=== PATIENT | male | born 1945 | race Caucasian/White ===

== ENCOUNTER 2018-11-14 18:27 | Emergency (ER) | payer MEDICARE, MEDICAID, SELFPAY ==
[2018-11-14] VITALS (12 sets, daily range): BP systolic 113–152; BP diastolic 70–85; PULSE 98–128; RESP 22–38; TEMP 37.4; O2SAT 93–100
--- NOTE | 2018-11-14 18:37 | DI.CT_ITS ---
SYMPTOM/DIAGNOSIS: ? DISSECTION CT ANGIOGRAPHY OF CHEST, ABDOMEN AND PELVIS: ABDOMEN AND PELVIS: CT angiography was performed with multi slice acquisition and multi planar and 3D reconstruction. The abdominal aorta is intact. No evidence of an aneurysm or dissection. The celiac access is intact and patent. No dissection or significant stenosis is seen. The superior and inferior mesenteric arteries are widely patient. There is mild calcium seen at the origins of the renal arteries but they are otherwise unremarkable. There is significant patient motion artifact present. The liver, spleen, gallbladder and bile ducts are unremarkable as are the adrenal glands. There is fatty infiltration of the pancreas which is otherwise unremarkable. The kidneys show normal and symmetric enhancement. No evidence of a solid renal mass or obstruction. The urinary bladder is intact. There does appear to be a 3 cm soft tissue density in the base of the bladder. This may represent the protrusion of the prostate but a bladder mass cannot be excluded. Reproductive organs are otherwise unremarkable. The bowel shows no evidence of obstruction or inflammation. No definite evidence of an acute appendicitis are present. No significant abdominal or pelvic adenopathy, ascites or pneumoperitoneum seen. Degenerative changes are seen in the spine. IMPRESSION: 1. No evidence of abdominal or pelvic arterial injury or dissection 2. 3 cm soft tissue density in the base of the bladder. Ultrasound or cystoscopy should be considered. CT CHEST: CT angiography was performed with multi slice acquisition and multi planar and 3D reconstruction. CT angiography of the chest was performed according to protocol. There is patient motion artifact. The thoracic aorta is intact. No evidence of dissection or aneurysm. Heart size is within normal limits. No significant pericardial effusion is seen. Coronary artery calcifications are present. No significant thoracic adenopathy is seen. No pneumothorax is identified. There are small bilateral pleural effusions No definite central pulmonary emboli are identified. Despite the patient motion artifact there do appear to be ground glass and patchy opacifications in the lower lobes bilaterally. The bones are intact. IMPRESSION: 1. Limited examination due to patient motion artifact. 2. No evidence of acute thoracic aortic injury/dissection. 3. Bilateral pulmonary infiltrates. This may represent pulmonary edema, infectious or inflammatory process cannot be excluded. 4. Small bilateral pleural effusions.
--- NOTE | 2018-11-14 18:38 | W.ED.GENAD ---
Discharge Plan Disposition Patient Disposition: [facility] Condition: Critical Discharge Details Chief Complaint: Chest Pain Clinical Impression: ACS (acute coronary syndrome) Reason For Visit: MARIA T Primary Care Provider: None,None ED Provider: Jeremiah Shah Home Meds and New Rx's Prescriptions: No Action No Known Home Meds RF: 0 Medical Decision Making 73 yo male who denies chronic medical problems though hasn't seen a medical provider in years, chronic smoker, who comes in with upper back pain and shortness of breath that started about 1-2 hours ago and was so severe ems was called. He is noted to be hypertensive in the 180's, tachypnea, and has diffuse crackles bilaterally with diffuse b lines in both lungs on bedside u/s. Has pain in the upper back, denies chest pain, ekg showing diffuse st dperessions and has avr st elevation. He could be having an acute coronary synodrome but given the upper back pain I am concerned for possible dissection tot he point where I feel he needs stat CT and given concern will hold on heparin and lytics at this time. He was given 624mg asa per the when this started. I am also ordering lasix given his diffuse pulmonary edema pt seen after returning from CT and placed on bipap with significant decrease in work of breathing. I reviewed the CT and do not see a dissection so heparin and plavix ordered. He now states he has had the back pain since yesterday but acutely worsened 2-3 hours ago. Unclear if lytics should be given given over 12 hours of pain. Vrad report not read yet but will discuss [place] [facility] nursing mislabeled initial labs and so they have to be redrawn. His work of breathing has much improved after lasix and bipap and pain is improved after fentanyl. [place] [facility] [place] [facility] agrees with tx plan and wants nitro drip started, hold on lytics at this time. Accepts for transfer. Pt has improved, still on bipap with decreased work of breathing, CT shows no aortic pathology, pulmonary edema, bladder mass that will need outpatient f/u Differential Diagnosis aortic dissection, stemi, pe Imaging Data Radiologic Study: Attestation: I personally reviewed and interpreted this imaging study as follows: Imaging: CT Scan Radiologist's impression: IMPRESSION: 1. Negative for acute aortic pathology. 2. Multifocal interstitial and airspace pulmonary disease. Differential diagnoses includes diffuse interstitial and airspace pulmonary edema versus infectious pneumonic process in the appropriate clinical setting. A combination of both entities is also possible. 3. Small bilateral layering pleural effusions. 4. Other incidental findings as detailed above. IMPRESSION: 1. Negative for acute aortic or vascular pathology. 2. Concern for a 2.9 cm intraluminal urinary bladder wall mass versus luminal indentation by a mildly enlarged prostate. Further evaluation with ultrasound, CT cystogram, or cystoscopy recommended. 3. Other incidental findings as detailed above. Lab Data Lab results reviewed: Yes I reviewed the patient's lab results. ECG Data Attestation: I personally reviewed and interpreted this ECG (s) as follows: Prior ECG tracings: not available for review Interpretation: 1st ekg unreadable due to artifact 2nd ekg shows sinus tachycardia at a rate of 130, pr 174, diffuse st depressions and st elevation in avr HPI General Mode of arrival: EMS. Date/Time Provider Initiated Documentation: 11/14/18 18:27. Limitations to Documentation: no limitations. Information obtained by: patient. History of Present Illness 73 year old M presents to the emergency department with the chief complaint of upper back pain, described as severe, with intensity rated at 10. Quality is described as stabbing and aching, and is localized to the back. Patient reports no radiation. Patient started experiencing this hour(s) (2) and it has been constant. No relieving factors improve symptom(s), No exacerbating factors reported . Patient notes shortness of breath. Patient did receive the following treatments prior to arrival, none Related Data Home Medications Medication Instructions Recorded Confirmed Unknown [No Known Home Meds] 11/14/18 11/14/18 Allergies Allergy/AdvReac Type Severity Reaction Status Date / Time No Known Allergies Allergy Unverified 11/14/18 18:43 Review of Systems Review of Systems All systems reviewed & are unremarkable except as noted in HPI and below Constitutional Denies chills and Denies fever(s) Cardiovascular Denies chest pain Respiratory Denies cough Gastrointestinal Denies abdominal pain, Denies nausea and Denies vomiting Integumentary/Breasts Denies rash [facility] Social History Smoking and Tabacco status: Current every day Exam Const General: in distress Orientation: alert HENMO Head: normal to inspection Ears: external ears normal General nose exam: external nose normal Mouth: moist mucous membranes Eyes General: appearance normal, both eyes and all related structures Neck Neck: normal visual inspection Resp Effort & Inspection: other (tachypnea, crackles throughout) Cardio Rate: regular rate Skin General skin exam: no rashes or lesions noted Neuro General: alert and oriented x3 Extrem General: normal to inspection Psych Mental Status: mental status grossly normal Critical Care Time Critical Care Time: Yes Total Critical Care Time: 60 (minutes) Attestation: Time spent initiating heparin/plavix nitro drip, lab and ekg review, bipap initiation in patient with acute coronary syndrome and pulmonary edema and potential to deteriorate at any time
[2018-11-14] MEDS: Furosemide 40 MG/4 ML VIAL IVP (18:44)
--- NOTE | 2018-11-14 18:46 | ED.GENADUL_ITS ---
Discharge Plan Disposition Patient Disposition: [facility] Condition: Critical Discharge Details Chief Complaint: Chest Pain Clinical Impression: ACS (acute coronary syndrome) Reason For Visit: MARIA T Primary Care Provider: None,None ED Provider: Jeremiah Shah Home Meds and New Rx's Prescriptions: No Action No Known Home Meds RF: 0 Medical Decision Making 73 yo male who denies chronic medical problems though hasn't seen a medical provider in years, chronic smoker, who comes in with upper back pain and shortness of breath that started about 1-2 hours ago and was so severe ems was called. He is noted to be hypertensive in the 180's, tachypnea, and has diffuse crackles bilaterally with diffuse b lines in both lungs on bedside u/s. Has pain in the upper back, denies chest pain, ekg showing diffuse st dperessions and has avr st elevation. He could be having an acute coronary synodrome but given the upper back pain I am concerned for possible dissection tot he point where I feel he needs stat CT and given concern will hold on heparin and lytics at this time. He was given 624mg asa per the when this started. I am also ordering lasix given his diffuse pulmonary edema pt seen after returning from CT and placed on bipap with significant decrease in work of breathing. I reviewed the CT and do not see a dissection so heparin and plavix ordered. He now states he has had the back pain since yesterday but acutely worsened 2-3 hours ago. Unclear if lytics should be given given over 12 hours of pain. Vrad report not read yet but will discuss with cardiology at [facility] lab reports nursing mislabeled initial labs and so they have to be redrawn. His work of breathing has much improved after lasix and bipap and pain is improved after fentanyl. Awaiting cardiology at [facility] spoke with Dr. Singh at [facility], agrees with tx plan and wants nitro drip started, hold on lytics at this time. Accepts for transfer. Pt has improved, still on bipap with decreased work of breathing, CT shows no aortic pathology, pulmonary edema, bladder mass that will need outpatient f/u Differential Diagnosis aortic dissection, stemi, pe Imaging Data Radiologic Study: Attestation: I personally reviewed and interpreted this imaging study as follows: Imaging: CT Scan Radiologist's impression: IMPRESSION: 1. Negative for acute aortic pathology. 2. Multifocal interstitial and airspace pulmonary disease. Differential diagnoses includes diffuse interstitial and airspace pulmonary edema versus infectious pneumonic process in the appropriate clinical setting. A combination of both entities is also possible. 3. Small bilateral layering pleural effusions. 4. Other incidental findings as detailed above. IMPRESSION: 1. Negative for acute aortic or vascular pathology. 2. Concern for a 2.9 cm intraluminal urinary bladder wall mass versus luminal indentation by a mildly enlarged prostate. Further evaluation with ultrasound, CT cystogram, or cystoscopy recommended. 3. Other incidental findings as detailed above. Lab Data Lab results reviewed: Yes I reviewed the patient's lab results. ECG Data Attestation: I personally reviewed and interpreted this ECG (s) as follows: Prior ECG tracings: not available for review Interpretation: 1st ekg unreadable due to artifact 2nd ekg shows sinus tachycardia at a rate of 130, pr 174, diffuse st depressions and st elevation in avr HPI General Mode of arrival: EMS . Date/Time Provider Initiated Documentation: 11/14/18 18:27 . Limitations to Documentation: no limitations . Information obtained by: patient . History of Present Illness 73 year old M presents to the emergency department with the chief complaint of upper back pain, described as severe, with intensity rated at 10. Quality is described as stabbing and aching, and is localized to the back. Patient reports no radiation. Patient started experiencing this hour(s) (2) and it has been constant. No relieving factors improve symptom(s), No exacerbating factors reported . Patient notes shortness of breath. Patient did receive the following treatments prior to arrival, none Related Data Home Medications Medication Instructions Recorded Confirmed Unknown [No Known Home Meds] 11/14/18 11/14/18 Allergies Allergy/AdvReac Type Severity Reaction Status Date / Time No Known Allergies Allergy Unverified 11/14/18 18:43 Review of Systems Review of Systems All systems reviewed & are unremarkable except as noted in HPI and below Constitutional Denies chills and Denies fever(s) Cardiovascular Denies chest pain Respiratory Denies cough Gastrointestinal Denies abdominal pain, Denies nausea and Denies vomiting Integumentary/Breasts Denies rash [facility] Social History Smoking and Tabacco status: Current every day Exam Const General: in distress Orientation: alert HENTN Head: normal to inspection Ears: external ears normal General nose exam: external nose normal Mouth: moist mucous membranes Eyes General: appearance normal, both eyes and all related structures Neck Neck: normal visual inspection Resp Effort & Inspection: other (tachypnea, crackles throughout) Cardio Rate: regular rate Skin General skin exam: no rashes or lesions noted Neuro General: alert and oriented x3 Extrem General: normal to inspection Psych Mental Status: mental status grossly normal Critical Care Time Critical Care Time: Yes Total Critical Care Time: 60 (minutes) Attestation: Time spent initiating heparin/plavix nitro drip, lab and ekg review, bipap initiation in patient with acute coronary syndrome and pulmonary edema and potential to deteriorate at any time
[2018-11-14] MEDS: Omnipaque 350 MG/ML 100 ML BTL IJ (18:50)
[2018-11-14] MEDS: Clopidogrel 300 MG TAB 600 MG PO (19:22)
--- NOTE | 2018-11-14 19:29 | DI.VRAD_ITS ---
EXAM: CT Angiography Chest With Contrast EXAM DATE/TIME: 11/14/2018 6:38 PM CLINICAL HISTORY: 73 years old, male; Pain; Chest pain and other: Back; Additional info: ? Dissection TECHNIQUE: Axial computed tomographic angiography images of the chest with intravenous contrast using CT angiography protocol. MIP reconstructed images were created and reviewed. COMPARISON: No relevant prior studies available. FINDINGS: Limitations: Study is degraded due to respiratory motion. Pulmonary arteries: Normal. No pulmonary emboli. Aorta: The aorta demonstrates mild atherosclerotic calcification. Aorta is otherwise normal in size and course without evidence of acute aortic pathology. Great vessels off aortic arch: There is a conventional branching pattern to the aortic arch vessels. Lungs: Respiratory motion artifact degrades evaluation of the lung parenchyma. Nevertheless, there is interlobular septal thickening appreciated at the lung bases and lung apices. There are diffuse groundglass and patchy opacifications noted in the mid to lower lung segments. Diffuse hazy opacifications throughout the lungs are also appreciated. Pleural space: Small bilateral layering pleural effusions are present. Heart: There is mild atherosclerotic calcification of the coronary arteries. The heart is not enlarged. No pericardial thickening or effusion. Lymph nodes: Unremarkable. No enlarged lymph nodes. Bones/joints: No acute skeletal pathology. Mild multilevel degenerative changes of the spine, as manifested by multilevel anterior osteophytes and multilevel decrease in intervertebral disc space. Soft tissues: Unremarkable. IMPRESSION: 1. Negative for acute aortic pathology. 2. Multifocal interstitial and airspace pulmonary disease. Differential diagnoses includes diffuse interstitial and airspace pulmonary edema versus infectious pneumonic process in the appropriate clinical setting. A combination of both entities is also possible. 3. Small bilateral layering pleural effusions. 4. Other incidental findings as detailed above. EXAM: CT Angiography Abdomen and Pelvis With Contrast EXAM DATE/TIME: 11/14/2018 6:38 PM CLINICAL HISTORY: 73 years old, male; Pain; Chest pain and other: Back; Additional info: ? Dissection TECHNIQUE: Axial computed tomographic angiography images of the abdomen and pelvis with intravenous contrast material, including non-contrast images if performed. MIP and/or 3D reconstructed images were created and reviewed. COMPARISON: No relevant prior studies available. FINDINGS: Limitations: Study is degraded by motion. VASCULATURE: Aorta: Diffuse calcific atherosclerotic disease throughout the abdominal aorta without acute aortic findings. Celiac trunk and mesenteric arteries: Mild calcific atherosclerotic disease to the celiac trunk without acute pathology noted. Questionable aberrant left hepatic artery arising from the aorta. This is however difficult to ascertain due to significant motion artifact. SMA is widely patent and without evidence of acute pathology. SAADIA is diminutive but appears grossly patent. Renal arteries: Mild atherosclerotic disease to the bilateral renal artery ostia. Otherwise, no acute pathology to the renal arteries. Right iliac arteries: Calcific atherosclerotic disease without acute findings. Right femoral/popliteal arteries: Calcific atherosclerotic disease without acute findings of the imaged proximal femoral artery. The popliteal artery was not imaged. Left iliac arteries: Calcific atherosclerotic disease without acute findings. Left femoral/popliteal arteries: Calcific atherosclerotic disease without acute findings of the imaged proximal femoral artery. The popliteal artery was not imaged. ABDOMEN: Liver: No mass. Gallbladder and bile ducts: Unremarkable. No calcified stones. No ductal dilation. Pancreas: There is diffuse, benign fatty infiltration of the pancreas. Spleen: Unremarkable. No splenomegaly. Adrenals: Unremarkable. No mass. Kidneys and ureters: Unremarkable. No solid mass. No hydronephrosis. Stomach and bowel: Unremarkable. No obstruction. No mucosal thickening. Appendix: Appendix is not confidently visualized and is examination. PELVIS: Bladder: 2.9 cm irregular intraluminal soft tissue density in the urinary bladder. Unclear if related to indentation from a mildly enlarged prostate gland versus an intraluminal bladder lesion. Reproductive: Mild prostatomegaly suggested. ABDOMEN and PELVIS: Intraperitoneal space: Unremarkable. No free air. No significant fluid collection. Bones/joints: No acute skeletal pathology. Moderate multilevel degenerative changes of the spine, as manifested by multilevel anterior osteophytes and multilevel decrease in intervertebral disc space. Soft tissues: Unremarkable. Lymph nodes: Unremarkable. No enlarged lymph nodes. IMPRESSION: 1. Negative for acute aortic or vascular pathology. 2. Concern for a 2.9 cm intraluminal urinary bladder wall mass versus luminal indentation by a mildly enlarged prostate. Further evaluation with ultrasound, CT cystogram, or cystoscopy recommended. 3. Other incidental findings as detailed above. Dictated and Authenticated by: Poncho Ferguson MD. Ordering:KELLY Daniels MD
[2018-11-14 19:36] LABS: HCT 24.1 % (40.0-50.0); HGB 8.3 g/dL (13.5-17.5); Mean Corp. HGB Concentration 34.4 g/dL (32.0-36.0); Mean Corpuscular Hemoglobin 41.9 pg (27.0-33.0); Mean Corpuscular Volume 121.7 fL (80-95); Mean Platelet Volume 9.2 fL (8.0-11.0); Platelet Count 219 x1000/uL (130-400); RBC 1.98 m/cumm (4.50-6.00); RBC Distribution Width 16.1 % (11.8-14.1)
[2018-11-14 19:38] LABS: White Blood Cell Count 39.18 k/cumm (4.4-10.8)
[2018-11-14 19:45] LABS: ALT 28 U/L (12-78); AST 71 U/L (15-37); Albumin 3.7 g/dL (3.4-5.0); Alkaline Phosphatase 101 U/L (46-116); Anion Gap 15.4 mmol/L (3-11); BUN 35 mg/dL (7-18); Bilirubin, Total 1.3 mg/dL (0.2-1.0); CO2 21.6 mmol/L (21.0-32.0); CREATININE 1.48 mg/dL (0.70-1.30); Calcium 8.6 mg/dL (8.5-10.1); Chloride 100 mmol/L (98-107); Estimated GFR 46.59 (mL/min/1.73m2); Glucose 285 mg/dL (70-100); Potassium 4.2 mmol/L (3.5-5.1); Sodium 137 mmol/L (136-145); Total Protein 6.7 g/dL (6.4-8.2)
[2018-11-14 19:50] LABS: Troponin I 4.23 ng/mL (0.00-0.06)
[2018-11-14 19:57] LABS: INR 1.1 (0.9-1.1); PTT Activated 18.1 sec (21.0-31.4); Prothrombin Time 10.5 sec (9.3-11.0)
[2018-11-14 21:09] LABS: Lipase 118 U/L (73-393); NT-proBNP 2212 pg/mL
[2018-11-14 21:29] LABS: Absolute Lymphocyte Count 25.47 k/cumm (1.2-3.4); Absolute Neutrophil Count 10.19 k/cumm (1.2-6.7)
[2018-11-14 21:30] LABS: Absolute Monocyte Count 1.96 k/cumm (0.11-0.7)
[2018-11-14 21:31] LABS: Diff Comment Manual Differential; Other Cells 4
[2018-11-14 21:32] LABS: Anisocytosis 2+; Macrocytosis 3+; Microcytosis 1+; Poikilocytes 2+; Polychromasia Present
--- NOTE | 2018-11-16 11:55 | NUR.NOTE ---
Patient transferred [place] [facility], lab report faxed to [phone].Nursing Note:
== END 2018-11-14 20:05 | disposition short-term general hospital (02) ==
LOC: ER 20:04
PROVIDERS: Emergency Provider Emergency Medicine
DX: I24.9 Acute ischemic heart disease, unspecified (principal); F17.210 Nicotine dependence, cigarettes, uncomplicated
CPT/HCPCS: 36415; 71275; 74177; 80053; 80076; 83690; 93005; 96365; 96368; 96375; 99285; 83735; 83880; 84484; 85025; 85610; 85730; 93010; J1940; J3490

== ENCOUNTER 2018-11-25 10:35 | Outpatient (CLI) | payer MEDICARE, MEDICAID, SELFPAY ==
[2018-11-25 11:01] LABS: HCT 32.4 % (40.0-50.0); Mean Corpuscular Hemoglobin 37.9 pg (27.0-33.0); Mean Corpuscular Volume 111.7 fL (80-95); Mean Platelet Volume 8.7 fL (8.0-11.0); Platelet Count 315 x1000/uL (130-400); RBC Distribution Width 20.6 % (11.8-14.1); Reticulocyte 6.5 % (0.5-2.4)
[2018-11-25 11:19] LABS: Absolute Lymphocyte Count 28.51 k/cumm (1.2-3.4); Absolute Monocyte Count 4.26 k/cumm (0.11-0.7); Absolute Neutrophil Count 9.79 k/cumm (1.2-6.7)
[2018-11-25 11:20] LABS: Anisocytosis 2+; Diff Comment Manual Differential; Polychromasia Present
[2018-11-25 11:21] LABS: ALT 50 U/L (12-78); AST 23 U/L (15-37); Albumin 3.1 g/dL (3.4-5.0); Alkaline Phosphatase 89 U/L (46-116); BUN 38 mg/dL (7-18); CREATININE 0.93 mg/dL (0.70-1.30); Calcium 8.6 mg/dL (8.5-10.1); Chloride 102 mmol/L (98-107); Glucose 174 mg/dL (70-100); LDH 317 U/L (85-227); Macrocytosis 3+; Potassium 4.6 mmol/L (3.5-5.1); Sodium 136 mmol/L (136-145); Total Protein 6.4 g/dL (6.4-8.2)
[2018-11-25 11:30] LABS: White Blood Cell Count 42.55 k/cumm (4.4-10.8)
== END 2018-11-25 10:55 ==
PROVIDERS: Visit Provider Internal Medicine Hematology & Oncology
DX: D59.1 Other autoimmune hemolytic anemias (principal)
CPT/HCPCS: 36415; 80053; 83615; 85025; 85045

== ENCOUNTER 2018-12-01 07:57 | Outpatient (CLI) | payer MEDICARE, MEDICAID, SELFPAY ==
[2018-12-01 08:27] LABS: HCT 33.8 % (40.0-50.0); HGB 11.3 g/dL (13.5-17.5); Mean Corp. HGB Concentration 33.4 g/dL (32.0-36.0); Mean Corpuscular Hemoglobin 37.8 pg (27.0-33.0); Mean Platelet Volume 8.8 fL (8.0-11.0); Platelet Count 184 x1000/uL (130-400); RBC 2.99 m/cumm (4.50-6.00); RBC Distribution Width 18.9 % (11.8-14.1); Reticulocyte 4.7 % (0.5-2.4)
[2018-12-01 08:31] LABS: ALT 76 U/L (12-78); AST 25 U/L (15-37); Albumin 3.1 g/dL (3.4-5.0); Alkaline Phosphatase 84 U/L (46-116); Anion Gap 6.6 mmol/L (3-11); BUN 28 mg/dL (7-18); CO2 28.4 mmol/L (21.0-32.0); CREATININE 0.83 mg/dL (0.70-1.30); Calcium 8.5 mg/dL (8.5-10.1); Chloride 102 mmol/L (98-107); Glucose 161 mg/dL (70-100); LDH 220 U/L (85-227); Potassium 4.5 mmol/L (3.5-5.1); Sodium 137 mmol/L (136-145); Total Protein 5.7 g/dL (6.4-8.2)
[2018-12-01 08:52] LABS: White Blood Cell Count 36.19 k/cumm (4.4-10.8)
[2018-12-01 08:53] LABS: Absolute Lymphocyte Count 28.23 k/cumm (1.2-3.4); Absolute Neutrophil Count 7.96 k/cumm (1.2-6.7)
[2018-12-01 08:58] LABS: Anisocytosis 1+; Macrocytosis 2+; Polychromasia Present
[2018-12-01 08:59] LABS: Poikilocytes 1+
[2018-12-01 09:01] LABS: Diff Comment Manual Differential
== END 2018-12-01 08:17 ==
PROVIDERS: Visit Provider Internal Medicine Hematology & Oncology
DX: D59.1 Other autoimmune hemolytic anemias (principal)
CPT/HCPCS: 36415; 80053; 83615; 85025; 85045

== ENCOUNTER 2018-12-09 02:19 | Outpatient (CLI) | payer MEDICARE, MEDICAID, SELFPAY ==
[2018-12-09 09:11] LABS: HCT 33.7 % (40.0-50.0); HGB 11.9 g/dL (13.5-17.5); Mean Corp. HGB Concentration 35.3 g/dL (32.0-36.0); Mean Corpuscular Hemoglobin 39.3 pg (27.0-33.0); Mean Corpuscular Volume 111.2 fL (80-95); Mean Platelet Volume 8.9 fL (8.0-11.0); RBC 3.03 m/cumm (4.50-6.00); RBC Distribution Width 17.2 % (11.8-14.1); Reticulocyte 4.3 % (0.5-2.4)
[2018-12-09 09:25] LABS: ALT 102 U/L (12-78); AST 25 U/L (15-37); Alkaline Phosphatase 82 U/L (46-116); Anion Gap 7.3 mmol/L (3-11); BUN 28 mg/dL (7-18); Bilirubin, Total 0.9 mg/dL (0.2-1.0); CO2 28.7 mmol/L (21.0-32.0); CREATININE 0.71 mg/dL (0.70-1.30); Calcium 8.2 mg/dL (8.5-10.1); Chloride 102 mmol/L (98-107); Glucose 131 mg/dL (70-100); LDH 183 U/L (85-227); Potassium 4.4 mmol/L (3.5-5.1); Sodium 138 mmol/L (136-145); Total Protein 5.2 g/dL (6.4-8.2)
[2018-12-09 09:42] LABS: Platelet Count 77 x1000/uL (130-400); White Blood Cell Count 38.27 k/cumm (4.4-10.8)
[2018-12-09 09:43] LABS: Absolute Lymphocyte Count 31.76 k/cumm (1.2-3.4); Absolute Monocyte Count 0.77 k/cumm (0.11-0.7); Absolute Neutrophil Count 5.74 k/cumm (1.2-6.7)
[2018-12-09 09:44] LABS: Anisocytosis 2+; Diff Comment Manual Differential; Macrocytosis 2+; Polychromasia Present
== END 2018-12-09 02:39 ==
PROVIDERS: PCP Family Medicine; Visit Provider Internal Medicine Hematology & Oncology
DX: D59.1 Other autoimmune hemolytic anemias (principal)
CPT/HCPCS: 36415; 80053; 83615; 85025; 85045

== ENCOUNTER 2018-12-16 08:11 | Outpatient (CLI) | payer MEDICARE, MEDICAID, SELFPAY ==
[2018-12-16 08:33] LABS: Abs Immature Grans 0.07 k/cumm (0.0-0.09); HCT 35.1 % (40.0-50.0); HGB 12.7 g/dL (13.5-17.5); Mean Corp. HGB Concentration 36.2 g/dL (32.0-36.0); Mean Corpuscular Hemoglobin 39.4 pg (27.0-33.0); Mean Platelet Volume 8.7 fL (8.0-11.0); RBC 3.22 m/cumm (4.50-6.00); RBC Distribution Width 16.5 % (11.8-14.1)
[2018-12-16 08:45] LABS: ALT 84 U/L (12-78); AST 24 U/L (15-37); Albumin 3.2 g/dL (3.4-5.0); Alkaline Phosphatase 75 U/L (46-116); Anion Gap 9.9 mmol/L (3-11); BUN 31 mg/dL (7-18); Bilirubin, Total 1.1 mg/dL (0.2-1.0); CO2 23.1 mmol/L (21.0-32.0); CREATININE 0.85 mg/dL (0.70-1.30); Calcium 8.3 mg/dL (8.5-10.1); Chloride 99 mmol/L (98-107); Glucose 150 mg/dL (70-100); LDH 214 U/L (85-227); Potassium 4.3 mmol/L (3.5-5.1); Sodium 132 mmol/L (136-145); Total Protein 5.4 g/dL (6.4-8.2)
[2018-12-16 08:56] LABS: Absolute Neutrophil Count 4.73 k/cumm (1.2-6.7); Platelet Count 85 x1000/uL (130-400); White Blood Cell Count 33.79 k/cumm (4.4-10.8)
[2018-12-16 09:01] LABS: Diff Comment Manual Differential; Macrocytosis 2+; Poikilocytes 1+; Tear Drop Cells 2+
[2018-12-17 12:06] LABS: Absolute Lymphocyte Count 27.71 k/cumm (1.2-3.4)
[2018-12-17 12:08] LABS: Absolute Monocyte Count 1.35 k/cumm (0.11-0.7)
[2018-12-17 13:25] LABS: Hepatitis B Surface Ag Negative (NEGAT)
[2018-12-17 14:17] LABS: Hepatitis C Ab w Rflx HCV PCR Negative (NEGAT)
[2018-12-17 14:37] LABS: HBs Antibody, Quant 52.3 mIU/mL; Hepatitis B Surface Ab Positive
== END 2018-12-16 08:31 ==
PROVIDERS: PCP Family Medicine; Visit Provider Internal Medicine Hematology & Oncology
DX: D59.1 Other autoimmune hemolytic anemias (principal); C91.90 Lymphoid leukemia, unspecified not having achieved remission
CPT/HCPCS: 36415; 80053; 86706; 86803; 87340; 83615; 85025; 85045; 86704

== ENCOUNTER → 2018-12-18 13:56 | Outpatient (BNVA) | payer MEDICARE, MEDICAID, SELFPAY | PROVIDERS: PCP Family Medicine; Visit Provider Urology | DX: N32.9 Bladder disorder, unspecified (principal); R31.29 Other microscopic hematuria; I21.9 Acute myocardial infarction, unspecified | CPT/HCPCS: 99214; 99242 ==

== ENCOUNTER 2018-12-23 01:45 | Outpatient (CLI) | payer MEDICARE, MEDICAID, SELFPAY ==
[2018-12-23 08:03] LABS: Abs Immature Grans 0.06 k/cumm (0.0-0.09); HCT 36.4 % (40.0-50.0); HGB 12.8 g/dL (13.5-17.5); Mean Corp. HGB Concentration 35.2 g/dL (32.0-36.0); Mean Corpuscular Hemoglobin 38.9 pg (27.0-33.0); Mean Corpuscular Volume 110.6 fL (80-95); Mean Platelet Volume 8.5 fL (8.0-11.0); Platelet Count 101 x1000/uL (130-400); RBC 3.29 m/cumm (4.50-6.00); RBC Distribution Width 16.4 % (11.8-14.1); White Blood Cell Count 19.89 k/cumm (4.4-10.8)
[2018-12-23 08:16] LABS: ALT 71 U/L (12-78); AST 22 U/L (15-37); Alkaline Phosphatase 70 U/L (46-116); Anion Gap 9.9 mmol/L (3-11); BUN 24 mg/dL (7-18); Bilirubin, Total 0.9 mg/dL (0.2-1.0); CO2 27.1 mmol/L (21.0-32.0); CREATININE 0.83 mg/dL (0.70-1.30); Calcium 8.5 mg/dL (8.5-10.1); Chloride 98 mmol/L (98-107); Glucose 107 mg/dL (70-100); LDH 202 U/L (85-227); Sodium 135 mmol/L (136-145); Total Protein 5.5 g/dL (6.4-8.2)
[2018-12-23 08:17] LABS: Absolute Lymphocyte Count 14.32 k/cumm (1.2-3.4); Absolute Neutrophil Count 5.17 k/cumm (1.2-6.7)
[2018-12-23 08:18] LABS: Anisocytosis 2+; Macrocytosis 2+; Poikilocytes 1+; Polychromasia Present
[2018-12-23 08:19] LABS: Diff Comment Manual Differential
== END 2018-12-23 02:05 ==
PROVIDERS: PCP Family Medicine; Visit Provider Internal Medicine Hematology & Oncology
DX: D59.1 Other autoimmune hemolytic anemias (principal)
CPT/HCPCS: 36415; 80053; 83615; 85025; 85045

== ENCOUNTER → 2018-12-24 10:38 | Outpatient (BNVA) | payer MEDICARE, MEDICAID, SELFPAY | PROVIDERS: PCP Family Medicine; Visit Provider Internal Medicine Cardiovascular Disease | DX: I25.10 Atherosclerotic heart disease of native coronary artery without angina pectoris (principal); I21.4 Non-ST elevation (NSTEMI) myocardial infarction; Z95.5 Presence of coronary angioplasty implant and graft; E78.2 Mixed hyperlipidemia; E11.9 Type 2 diabetes mellitus without complications; Z79.84 Long term (current) use of oral hypoglycemic drugs | CPT/HCPCS: 99205; 99215 ==

== ENCOUNTER 2018-12-30 02:11 | Outpatient (CLI) | payer MEDICARE, MEDICAID, SELFPAY ==
[2018-12-30 08:00] LABS: Abs Immature Grans 0.03 k/cumm (0.0-0.09); Absolute Basophil Count 0.01 k/cumm (0.0-0.2); Absolute Eosinophil Count 0.02 k/cumm (0.0-0.7); Absolute Lymphocyte Count 6.78 k/cumm (1.2-3.4); Absolute Neutrophil Count 4.04 k/cumm (1.2-6.7); Basophils % 0.1; Eosinophils % 0.2; HCT 37.7 % (40.0-50.0); Immature Grans % 0.3; Mean Corp. HGB Concentration 34.5 g/dL (32.0-36.0); Mean Corpuscular Volume 110.2 fL (80-95); Mean Platelet Volume 8.1 fL (8.0-11.0); Monocytes % 2.2; Neutrophils % 36.3; RBC 3.42 m/cumm (4.50-6.00); RBC Distribution Width 16.6 % (11.8-14.1); Reticulocyte 3.1 % (0.5-2.4); White Blood Cell Count 11.13 k/cumm (4.4-10.8)
[2018-12-30 08:08] LABS: ALT 71 U/L (12-78); AST 22 U/L (15-37); Albumin 3.1 g/dL (3.4-5.0); Alkaline Phosphatase 80 U/L (46-116); Anion Gap 10.3 mmol/L (3-11); BUN 37 mg/dL (7-18); Bilirubin, Total 1.2 mg/dL (0.2-1.0); CO2 25.7 mmol/L (21.0-32.0); CREATININE 0.99 mg/dL (0.70-1.30); Calcium 8.4 mg/dL (8.5-10.1); Chloride 100 mmol/L (98-107); Glucose 128 mg/dL (70-100); LDH 216 U/L (85-227); Potassium 4.2 mmol/L (3.5-5.1); Sodium 136 mmol/L (136-145); Total Protein 5.8 g/dL (6.4-8.2)
[2018-12-30 08:12] LABS: Absolute Monocyte Count 0.24 k/cumm (0.11-0.7)
[2018-12-30 08:19] LABS: Anisocytosis 1+; Lymphocytes % 60.9; Platelet Count 108 x1000/uL (130-400)
[2018-12-30 08:20] LABS: Macrocytosis 2+; Poikilocytes 2+; Polychromasia Present
== END 2018-12-30 02:31 ==
PROVIDERS: PCP Family Medicine; Visit Provider Internal Medicine Hematology & Oncology
DX: D59.1 Other autoimmune hemolytic anemias (principal)
CPT/HCPCS: 36415; 80053; 83615; 85025; 85045

== ENCOUNTER 2019-01-06 08:47 | Outpatient (CLI) | payer MEDICARE, MEDICAID, SELFPAY ==
[2019-01-06 09:08] LABS: Abs Immature Grans 0.06 k/cumm (0.0-0.09); Absolute Basophil Count 0.01 k/cumm (0.0-0.2); Absolute Eosinophil Count 0.02 k/cumm (0.0-0.7); Absolute Lymphocyte Count 3.43 k/cumm (1.2-3.4); Absolute Neutrophil Count 4.09 k/cumm (1.2-6.7); Basophils % 0.1; Eosinophils % 0.3; HCT 35.8 % (40.0-50.0); HGB 12.7 g/dL (13.5-17.5); Immature Grans % 0.8; Mean Corp. HGB Concentration 35.5 g/dL (32.0-36.0); Mean Corpuscular Hemoglobin 38.5 pg (27.0-33.0); Mean Corpuscular Volume 108.5 fL (80-95); Mean Platelet Volume 8.4 fL (8.0-11.0); Monocytes % 1.3; Platelet Count 123 x1000/uL (130-400); RBC Distribution Width 16.2 % (11.8-14.1); Reticulocyte 3.7 % (0.5-2.4); White Blood Cell Count 7.71 k/cumm (4.4-10.8)
[2019-01-06 09:16] LABS: ALT 90 U/L (12-78); AST 26 U/L (15-37); Albumin 3.1 g/dL (3.4-5.0); Alkaline Phosphatase 86 U/L (46-116); Anion Gap 10.1 mmol/L (3-11); BUN 27 mg/dL (7-18); Bilirubin, Total 0.9 mg/dL (0.2-1.0); CO2 27.9 mmol/L (21.0-32.0); CREATININE 0.91 mg/dL (0.70-1.30); Calcium 8.5 mg/dL (8.5-10.1); Chloride 100 mmol/L (98-107); Glucose 145 mg/dL (70-100); LDH 220 U/L (85-227); Potassium 3.8 mmol/L (3.5-5.1); Sodium 138 mmol/L (136-145); Total Protein 5.8 g/dL (6.4-8.2)
[2019-01-06 09:29] LABS: Anisocytosis 1+; Lymphocytes % 44.5; Macrocytosis 2+; Polychromasia Present
== END 2019-01-06 09:07 ==
PROVIDERS: PCP Family Medicine; Visit Provider Internal Medicine Hematology & Oncology
DX: D59.1 Other autoimmune hemolytic anemias (principal)
CPT/HCPCS: 36415; 80053; 83615; 85025; 85045

== ENCOUNTER 2019-01-12 01:42 | Outpatient (CLI) | payer MEDICARE, MEDICAID, SELFPAY ==
[2019-01-12 07:43] LABS: Abs Immature Grans 0.06 k/cumm (0.0-0.09); Absolute Basophil Count 0.01 k/cumm (0.0-0.2); Absolute Eosinophil Count 0.02 k/cumm (0.0-0.7); Absolute Lymphocyte Count 3.17 k/cumm (1.2-3.4); Absolute Monocyte Count 0.26 k/cumm (0.11-0.7); BUN 28 mg/dL (7-18); Basophils % 0.1; Calcium 8.7 mg/dL (8.5-10.1); Eosinophils % 0.3; Glucose 152 mg/dL (70-100); HCT 35.1 % (40.0-50.0); HGB 12.4 g/dL (13.5-17.5); Immature Grans % 0.9; Lymphocytes % 45.8; Mean Corp. HGB Concentration 35.3 g/dL (32.0-36.0); Mean Corpuscular Hemoglobin 38.2 pg (27.0-33.0); Mean Platelet Volume 8.4 fL (8.0-11.0); Monocytes % 3.8; Neutrophils % 49.1; Platelet Count 120 x1000/uL (130-400); RBC 3.25 m/cumm (4.50-6.00); RBC Distribution Width 15.9 % (11.8-14.1); Reticulocyte 4.2 % (0.5-2.4); White Blood Cell Count 6.92 k/cumm (4.4-10.8)
[2019-01-12 07:44] LABS: ALT 79 U/L (12-78); AST 23 U/L (15-37); Albumin 3.2 g/dL (3.4-5.0); Alkaline Phosphatase 76 U/L (46-116); Anion Gap 10.4 mmol/L (3-11); CO2 25.6 mmol/L (21.0-32.0); Chloride 100 mmol/L (98-107); LDH 217 U/L (85-227); Potassium 3.6 mmol/L (3.5-5.1); Sodium 136 mmol/L (136-145); Total Protein 5.8 g/dL (6.4-8.2)
== END 2019-01-12 02:02 ==
PROVIDERS: PCP Family Medicine; Visit Provider Internal Medicine Hematology & Oncology
DX: D59.1 Other autoimmune hemolytic anemias (principal)
CPT/HCPCS: 36415; 80053; 83615; 85025; 85045

== ENCOUNTER 2019-01-19 01:24 | Outpatient (CLI) | payer MEDICARE, MEDICAID, SELFPAY ==
[2019-01-19 08:22] LABS: Abs Immature Grans 0.05 k/cumm (0.0-0.09); Absolute Basophil Count 0.01 k/cumm (0.0-0.2); Absolute Eosinophil Count 0.02 k/cumm (0.0-0.7); Absolute Lymphocyte Count 3.22 k/cumm (1.2-3.4); Absolute Monocyte Count 0.22 k/cumm (0.11-0.7); Basophils % 0.2; Eosinophils % 0.3; HCT 35.4 % (40.0-50.0); HGB 12.3 g/dL (13.5-17.5); Immature Grans % 0.9; Lymphocytes % 55.3; Mean Corp. HGB Concentration 34.7 g/dL (32.0-36.0); Mean Corpuscular Hemoglobin 37.4 pg (27.0-33.0); Mean Corpuscular Volume 107.6 fL (80-95); Mean Platelet Volume 8.2 fL (8.0-11.0); Monocytes % 3.8; Neutrophils % 39.5; Platelet Count 131 x1000/uL (130-400); RBC 3.29 m/cumm (4.50-6.00); Reticulocyte 4.8 % (0.5-2.4); White Blood Cell Count 5.82 k/cumm (4.4-10.8)
[2019-01-19 08:58] LABS: ALT 127 U/L (12-78); AST 30 U/L (15-37); Albumin 3.3 g/dL (3.4-5.0); Alkaline Phosphatase 77 U/L (46-116); Anion Gap 12.4 mmol/L (3-11); BUN 27 mg/dL (7-18); Bilirubin, Total 1.2 mg/dL (0.2-1.0); CO2 25.6 mmol/L (21.0-32.0); CREATININE 0.89 mg/dL (0.70-1.30); Calcium 8.6 mg/dL (8.5-10.1); Chloride 99 mmol/L (98-107); Glucose 153 mg/dL (70-100); LDH 218 U/L (85-227); Potassium 3.6 mmol/L (3.5-5.1); Sodium 137 mmol/L (136-145); Total Protein 5.6 g/dL (6.4-8.2)
[2019-01-19 09:30] LABS: Anisocytosis 2+; Diff Comment RBC Morph Reviewed; Macrocytosis 2+; Microcytosis 1+; Polychromasia Present
[2019-01-19 09:31] LABS: Poikilocytes 2+
== END 2019-01-19 01:44 ==
PROVIDERS: PCP Family Medicine; Visit Provider Internal Medicine Hematology & Oncology
DX: D59.1 Other autoimmune hemolytic anemias (principal)
CPT/HCPCS: 36415; 80053; 83615; 85025; 85045

== ENCOUNTER 2019-01-26 02:21 | Outpatient (CLI) | payer MEDICARE, MEDICAID, SELFPAY ==
[2019-01-26 07:33] LABS: Abs Immature Grans 0.09 k/cumm (0.0-0.09); HCT 33.6 % (40.0-50.0); HGB 11.9 g/dL (13.5-17.5); Mean Corp. HGB Concentration 35.4 g/dL (32.0-36.0); Mean Corpuscular Hemoglobin 37.9 pg (27.0-33.0); Mean Platelet Volume 7.9 fL (8.0-11.0); Platelet Count 126 x1000/uL (130-400); RBC 3.14 m/cumm (4.50-6.00); RBC Distribution Width 15.7 % (11.8-14.1); Reticulocyte 4.9 % (0.5-2.4); White Blood Cell Count 3.63 k/cumm (4.4-10.8)
[2019-01-26 07:45] LABS: ALT 90 U/L (12-78); AST 25 U/L (15-37); Albumin 3.2 g/dL (3.4-5.0); Alkaline Phosphatase 71 U/L (46-116); Anion Gap 9.3 mmol/L (3-11); BUN 22 mg/dL (7-18); Bilirubin, Total 1.2 mg/dL (0.2-1.0); CO2 25.7 mmol/L (21.0-32.0); CREATININE 0.88 mg/dL (0.70-1.30); Calcium 8.4 mg/dL (8.5-10.1); Chloride 100 mmol/L (98-107); Glucose 137 mg/dL (70-100); LDH 212 U/L (85-227); Potassium 3.7 mmol/L (3.5-5.1); Sodium 135 mmol/L (136-145); Total Protein 5.6 g/dL (6.4-8.2)
[2019-01-26 07:53] LABS: Absolute Neutrophil Count 1.89 k/cumm (1.2-6.7)
[2019-01-26 08:12] LABS: Absolute Monocyte Count 0.11 k/cumm (0.11-0.7)
[2019-01-26 08:13] LABS: Anisocytosis 1+; Diff Comment Manual Differential; Macrocytosis 1+; Poikilocytes 1+; Polychromasia Present
== END 2019-01-26 02:41 ==
PROVIDERS: PCP Family Medicine; Visit Provider Internal Medicine Hematology & Oncology
DX: D59.1 Other autoimmune hemolytic anemias (principal)
CPT/HCPCS: 80053; 83615; 85025; 85045

== ENCOUNTER 2019-02-03 10:36 | Outpatient (CLI) | payer MEDICARE, MEDICAID, SELFPAY ==
[2019-02-03 11:04] LABS: Abs Immature Grans 0.11 k/cumm (0.0-0.09); HCT 35.5 % (40.0-50.0); HGB 12.5 g/dL (13.5-17.5); Mean Corp. HGB Concentration 35.2 g/dL (32.0-36.0); Mean Corpuscular Hemoglobin 37.5 pg (27.0-33.0); Mean Corpuscular Volume 106.6 fL (80-95); Mean Platelet Volume 7.8 fL (8.0-11.0); Platelet Count 128 x1000/uL (130-400); RBC 3.33 m/cumm (4.50-6.00); RBC Distribution Width 15.8 % (11.8-14.1); Reticulocyte 4.4 % (0.5-2.4); White Blood Cell Count 4.72 k/cumm (4.4-10.8)
[2019-02-03 11:16] LABS: ALT 88 U/L (12-78); AST 28 U/L (15-37); Albumin 3.4 g/dL (3.4-5.0); Alkaline Phosphatase 59 U/L (46-116); Anion Gap 10.7 mmol/L (3-11); BUN 29 mg/dL (7-18); Bilirubin, Total 1.6 mg/dL (0.2-1.0); CO2 25.3 mmol/L (21.0-32.0); CREATININE 1.02 mg/dL (0.70-1.30); Calcium 8.8 mg/dL (8.5-10.1); Chloride 99 mmol/L (98-107); Glucose 200 mg/dL (70-100); LDH 258 U/L (85-227); Potassium 4.5 mmol/L (3.5-5.1); Sodium 135 mmol/L (136-145); Total Protein 6.1 g/dL (6.4-8.2)
[2019-02-03 11:21] LABS: Absolute Neutrophil Count 2.83 k/cumm (1.2-6.7)
[2019-02-03 11:22] LABS: Absolute Lymphocyte Count 1.75 k/cumm (1.2-3.4); Absolute Monocyte Count 0.14 k/cumm (0.11-0.7); Anisocytosis 1+; Atypical Lymphocytes % 7; Diff Comment Manual Differential; Macrocytosis 3+; Polychromasia Present
[2019-02-03 11:23] LABS: Poikilocytes 2+
== END 2019-02-03 10:56 ==
PROVIDERS: PCP Family Medicine; Visit Provider Internal Medicine Hematology & Oncology
DX: D59.1 Other autoimmune hemolytic anemias (principal)
CPT/HCPCS: 36415; 80053; 83615; 85025; 85045

== ENCOUNTER 2019-02-09 02:41 | Outpatient (CLI) | payer MEDICARE, MEDICAID, SELFPAY ==
[2019-02-09 08:08] LABS: Abs Immature Grans 0.24 k/cumm (0.0-0.09); HCT 34.4 % (40.0-50.0); HGB 11.6 g/dL (13.5-17.5); Mean Corp. HGB Concentration 33.7 g/dL (32.0-36.0); Mean Corpuscular Hemoglobin 36.1 pg (27.0-33.0); Mean Corpuscular Volume 107.2 fL (80-95); Mean Platelet Volume 7.9 fL (8.0-11.0); Platelet Count 153 x1000/uL (130-400); RBC 3.21 m/cumm (4.50-6.00); RBC Distribution Width 15.6 % (11.8-14.1); Reticulocyte 5.5 % (0.5-2.4); White Blood Cell Count 4.48 k/cumm (4.4-10.8)
[2019-02-09 08:25] LABS: Absolute Lymphocyte Count 1.03 k/cumm (1.2-3.4); Absolute Monocyte Count 0.04 k/cumm (0.11-0.7); Absolute Neutrophil Count 3.36 k/cumm (1.2-6.7)
[2019-02-09 08:27] LABS: Anisocytosis 1+; Diff Comment Manual Differential; Macrocytosis 2+; Polychromasia Present; Tear Drop Cells 2+
[2019-02-09 09:01] LABS: ALT 98 U/L (12-78); AST 31 U/L (15-37); Albumin 3.4 g/dL (3.4-5.0); Alkaline Phosphatase 70 U/L (46-116); BUN 20 mg/dL (7-18); Bilirubin, Total 1.1 mg/dL (0.2-1.0); CREATININE 0.98 mg/dL (0.70-1.30); Calcium 8.8 mg/dL (8.5-10.1); Chloride 99 mmol/L (98-107); Glucose 207 mg/dL (70-100); LDH 245 U/L (85-227); Potassium 4.3 mmol/L (3.5-5.1); Sodium 136 mmol/L (136-145); Total Protein 5.6 g/dL (6.4-8.2)
== END 2019-02-09 03:01 ==
PROVIDERS: PCP Family Medicine; Visit Provider Internal Medicine Hematology & Oncology
DX: D59.1 Other autoimmune hemolytic anemias (principal)
CPT/HCPCS: 36415; 80053; 83615; 85025; 85045

== ENCOUNTER 2019-02-16 01:44 | Outpatient (CLI) | payer MEDICARE, MEDICAID, SELFPAY ==
[2019-02-16 08:06] LABS: Abs Immature Grans 0.03 k/cumm (0.0-0.09); Absolute Eosinophil Count 0.01 k/cumm (0.0-0.7); Absolute Lymphocyte Count 1.12 k/cumm (1.2-3.4); Absolute Monocyte Count 0.34 k/cumm (0.11-0.7); Absolute Neutrophil Count 1.29 k/cumm (1.2-6.7); Eosinophils % 0.4; HCT 34.1 % (40.0-50.0); HGB 11.8 g/dL (13.5-17.5); Immature Grans % 1.1; Lymphocytes % 40.1; Mean Corp. HGB Concentration 34.6 g/dL (32.0-36.0); Mean Corpuscular Volume 106.9 fL (80-95); Mean Platelet Volume 7.8 fL (8.0-11.0); Monocytes % 12.2; Neutrophils % 46.2; Platelet Count 162 x1000/uL (130-400); RBC 3.19 m/cumm (4.50-6.00); RBC Distribution Width 14.9 % (11.8-14.1); Reticulocyte 4.4 % (0.5-2.4); White Blood Cell Count 2.79 k/cumm (4.4-10.8)
[2019-02-16 08:19] LABS: ALT 94 U/L (12-78); AST 26 U/L (15-37); Albumin 3.4 g/dL (3.4-5.0); Alkaline Phosphatase 61 U/L (46-116); Anion Gap 9.1 mmol/L (3-11); BUN 19 mg/dL (7-18); Bilirubin, Total 1.5 mg/dL (0.2-1.0); CO2 26.9 mmol/L (21.0-32.0); CREATININE 0.91 mg/dL (0.70-1.30); Chloride 102 mmol/L (98-107); Glucose 125 mg/dL (70-100); LDH 223 U/L (85-227); Potassium 4.2 mmol/L (3.5-5.1); Sodium 138 mmol/L (136-145); Total Protein 5.9 g/dL (6.4-8.2)
== END 2019-02-16 02:04 ==
PROVIDERS: PCP Family Medicine; Visit Provider Internal Medicine Hematology & Oncology
DX: D59.1 Other autoimmune hemolytic anemias (principal)
CPT/HCPCS: 36415; 80053; 83615; 85025; 85045

== ENCOUNTER 2019-02-23 01:07 | Outpatient (CLI) | payer MEDICARE, MEDICAID, SELFPAY ==
[2019-02-23 08:12] LABS: Abs Immature Grans 0.15 k/cumm (0.0-0.09); Absolute Basophil Count 0.02 k/cumm (0.0-0.2); Absolute Lymphocyte Count 1.47 k/cumm (1.2-3.4); Absolute Monocyte Count 0.65 k/cumm (0.11-0.7); Absolute Neutrophil Count 5.66 k/cumm (1.2-6.7); Basophils % 0.3; HCT 36.9 % (40.0-50.0); HGB 12.8 g/dL (13.5-17.5); Immature Grans % 1.9; Lymphocytes % 18.5; Mean Corp. HGB Concentration 34.7 g/dL (32.0-36.0); Mean Corpuscular Volume 106.6 fL (80-95); Monocytes % 8.2; Neutrophils % 71.1; Platelet Count 171 x1000/uL (130-400); RBC 3.46 m/cumm (4.50-6.00); RBC Distribution Width 14.6 % (11.8-14.1); Reticulocyte 5.5 % (0.5-2.4); White Blood Cell Count 7.95 k/cumm (4.4-10.8)
[2019-02-23 08:18] LABS: ALT 79 U/L (12-78); AST 21 U/L (15-37); Albumin 3.5 g/dL (3.4-5.0); Alkaline Phosphatase 62 U/L (46-116); Anion Gap 9.5 mmol/L (3-11); BUN 22 mg/dL (7-18); CO2 26.5 mmol/L (21.0-32.0); CREATININE 0.96 mg/dL (0.70-1.30); Calcium 8.9 mg/dL (8.5-10.1); Chloride 99 mmol/L (98-107); Glucose 165 mg/dL (70-100); LDH 199 U/L (85-227); Potassium 3.9 mmol/L (3.5-5.1); Sodium 135 mmol/L (136-145); Total Protein 6.1 g/dL (6.4-8.2)
== END 2019-02-23 01:27 ==
PROVIDERS: PCP Family Medicine; Visit Provider Internal Medicine Hematology & Oncology
DX: D59.1 Other autoimmune hemolytic anemias (principal)
CPT/HCPCS: 36415; 80053; 83615; 85025; 85045

== ENCOUNTER 2019-03-02 01:52 | Outpatient (CLI) | payer MEDICARE, MEDICAID, SELFPAY ==
[2019-03-02 07:31] LABS: Abs Immature Grans 0.08 k/cumm (0.0-0.09); Absolute Basophil Count 0.01 k/cumm (0.0-0.2); Absolute Eosinophil Count 0.01 k/cumm (0.0-0.7); Absolute Lymphocyte Count 0.81 k/cumm (1.2-3.4); Absolute Monocyte Count 0.35 k/cumm (0.11-0.7); Absolute Neutrophil Count 6.09 k/cumm (1.2-6.7); Basophils % 0.1; Eosinophils % 0.1; HCT 37.7 % (40.0-50.0); Immature Grans % 1.1; Mean Corp. HGB Concentration 34.5 g/dL (32.0-36.0); Mean Corpuscular Hemoglobin 36.8 pg (27.0-33.0); Mean Corpuscular Volume 106.8 fL (80-95); Mean Platelet Volume 8.1 fL (8.0-11.0); Monocytes % 4.8; Neutrophils % 82.9; Platelet Count 139 x1000/uL (130-400); RBC 3.53 m/cumm (4.50-6.00); RBC Distribution Width 13.9 % (11.8-14.1); Reticulocyte 3.6 % (0.5-2.4); White Blood Cell Count 7.35 k/cumm (4.4-10.8)
[2019-03-02 07:46] LABS: ALT 103 U/L (12-78); AST 30 U/L (15-37); Albumin 3.6 g/dL (3.4-5.0); Alkaline Phosphatase 64 U/L (46-116); Anion Gap 9.5 mmol/L (3-11); BUN 17 mg/dL (7-18); Bilirubin, Total 0.9 mg/dL (0.2-1.0); CO2 26.5 mmol/L (21.0-32.0); CREATININE 0.96 mg/dL (0.70-1.30); Chloride 101 mmol/L (98-107); Glucose 165 mg/dL (70-100); LDH 204 U/L (85-227); Potassium 3.9 mmol/L (3.5-5.1); Sodium 137 mmol/L (136-145); Total Protein 6.1 g/dL (6.4-8.2)
== END 2019-03-02 02:12 ==
PROVIDERS: PCP Family Medicine; Visit Provider Internal Medicine Hematology & Oncology
DX: D59.1 Other autoimmune hemolytic anemias (principal)
CPT/HCPCS: 36415; 80053; 83615; 85025; 85045

== ENCOUNTER 2019-03-09 07:05 | Outpatient (CLI) | payer MEDICARE, MEDICAID, SELFPAY ==
[2019-03-09 07:40] LABS: Abs Immature Grans 0.08 k/cumm (0.0-0.09); Absolute Basophil Count 0.02 k/cumm (0.0-0.2); Absolute Eosinophil Count 0.02 k/cumm (0.0-0.7); Absolute Lymphocyte Count 1.48 k/cumm (1.2-3.4); Absolute Monocyte Count 0.48 k/cumm (0.11-0.7); Absolute Neutrophil Count 3.75 k/cumm (1.2-6.7); Basophils % 0.3; Eosinophils % 0.3; HCT 38.9 % (40.0-50.0); HGB 13.4 g/dL (13.5-17.5); Immature Grans % 1.4; Lymphocytes % 25.4; Mean Corp. HGB Concentration 34.4 g/dL (32.0-36.0); Mean Corpuscular Hemoglobin 36.5 pg (27.0-33.0); Mean Platelet Volume 8.1 fL (8.0-11.0); Monocytes % 8.2; Neutrophils % 64.4; Platelet Count 123 x1000/uL (130-400); RBC 3.67 m/cumm (4.50-6.00); RBC Distribution Width 13.4 % (11.8-14.1); Reticulocyte 3.1 % (0.5-2.4); White Blood Cell Count 5.83 k/cumm (4.4-10.8)
[2019-03-09 08:01] LABS: ALT 85 U/L (12-78); AST 27 U/L (15-37); Albumin 3.6 g/dL (3.4-5.0); Alkaline Phosphatase 55 U/L (46-116); Anion Gap 7.5 mmol/L (3-11); BUN 19 mg/dL (7-18); Bilirubin, Total 0.9 mg/dL (0.2-1.0); CO2 27.5 mmol/L (21.0-32.0); CREATININE 0.99 mg/dL (0.70-1.30); Calcium 9.1 mg/dL (8.5-10.1); Chloride 103 mmol/L (98-107); Glucose 122 mg/dL (70-100); LDH 203 U/L (85-227); Potassium 3.7 mmol/L (3.5-5.1); Sodium 138 mmol/L (136-145); Total Protein 6.1 g/dL (6.4-8.2)
== END 2019-03-09 07:25 ==
PROVIDERS: PCP Family Medicine; Visit Provider Internal Medicine Hematology & Oncology
DX: D59.1 Other autoimmune hemolytic anemias (principal)
CPT/HCPCS: 36415; 80053; 83615; 85025; 85045

== ENCOUNTER 2019-03-17 07:06 | Outpatient (CLI) | payer MEDICARE, MEDICAID, SELFPAY ==
[2019-03-17 07:30] LABS: Abs Immature Grans 0.04 k/cumm (0.0-0.09); Absolute Basophil Count 0.03 k/cumm (0.0-0.2); Absolute Eosinophil Count 0.05 k/cumm (0.0-0.7); Absolute Lymphocyte Count 1.38 k/cumm (1.2-3.4); Absolute Monocyte Count 0.46 k/cumm (0.11-0.7); Absolute Neutrophil Count 1.91 k/cumm (1.2-6.7); Basophils % 0.8; Eosinophils % 1.3; Lymphocytes % 35.7; Mean Corp. HGB Concentration 34.2 g/dL (32.0-36.0); Mean Corpuscular Hemoglobin 35.7 pg (27.0-33.0); Mean Corpuscular Volume 104.4 fL (80-95); Mean Platelet Volume 8.1 fL (8.0-11.0); Monocytes % 11.9; Neutrophils % 49.3; Platelet Count 117 x1000/uL (130-400); RBC 3.64 m/cumm (4.50-6.00); RBC Distribution Width 12.9 % (11.8-14.1); White Blood Cell Count 3.87 k/cumm (4.4-10.8)
[2019-03-17 07:48] LABS: ALT 61 U/L (12-78); AST 24 U/L (15-37); Albumin 3.6 g/dL (3.4-5.0); Alkaline Phosphatase 52 U/L (46-116); Anion Gap 8.6 mmol/L (3-11); BUN 16 mg/dL (7-18); CO2 27.4 mmol/L (21.0-32.0); CREATININE 0.86 mg/dL (0.70-1.30); Calcium 8.9 mg/dL (8.5-10.1); Chloride 105 mmol/L (98-107); Glucose 117 mg/dL (70-100); LDH 212 U/L (85-227); Sodium 141 mmol/L (136-145)
== END 2019-03-17 07:26 ==
PROVIDERS: PCP Family Medicine; Visit Provider Internal Medicine Hematology & Oncology
DX: D59.1 Other autoimmune hemolytic anemias (principal)
CPT/HCPCS: 36415; 80053; 83615; 85025; 85045

== ENCOUNTER 2019-03-23 07:03 | Outpatient (CLI) | payer MEDICARE, MEDICAID, SELFPAY ==
[2019-03-23 07:34] LABS: Abs Immature Grans 0.05 k/cumm (0.0-0.09); Absolute Basophil Count 0.02 k/cumm (0.0-0.2); Absolute Eosinophil Count 0.03 k/cumm (0.0-0.7); Absolute Lymphocyte Count 1.16 k/cumm (1.2-3.4); Absolute Monocyte Count 0.53 k/cumm (0.11-0.7); Absolute Neutrophil Count 2.13 k/cumm (1.2-6.7); Basophils % 0.5; Eosinophils % 0.8; HCT 40.3 % (40.0-50.0); HGB 13.5 g/dL (13.5-17.5); Immature Grans % 1.3; Lymphocytes % 29.6; Mean Corp. HGB Concentration 33.5 g/dL (32.0-36.0); Mean Corpuscular Hemoglobin 34.4 pg (27.0-33.0); Mean Corpuscular Volume 102.8 fL (80-95); Monocytes % 13.5; Neutrophils % 54.3; Platelet Count 143 x1000/uL (130-400); RBC 3.92 m/cumm (4.50-6.00); Reticulocyte 2.4 % (0.5-2.4); White Blood Cell Count 3.92 k/cumm (4.4-10.8)
[2019-03-23 07:48] LABS: ALT 53 U/L (12-78); AST 25 U/L (15-37); Albumin 3.7 g/dL (3.4-5.0); Alkaline Phosphatase 63 U/L (46-116); BUN 14 mg/dL (7-18); Bilirubin, Total 0.8 mg/dL (0.2-1.0); CREATININE 0.88 mg/dL (0.70-1.30); Calcium 9.2 mg/dL (8.5-10.1); Chloride 104 mmol/L (98-107); Glucose 102 mg/dL (70-100); LDH 210 U/L (85-227); Potassium 3.9 mmol/L (3.5-5.1); Sodium 142 mmol/L (136-145); Total Protein 6.3 g/dL (6.4-8.2)
== END 2019-03-23 07:23 ==
PROVIDERS: PCP Family Medicine; Visit Provider Internal Medicine Hematology & Oncology
DX: D59.1 Other autoimmune hemolytic anemias (principal)
CPT/HCPCS: 36415; 80053; 83615; 85025; 85045

== ENCOUNTER 2019-04-06 07:07 | Outpatient (CLI) | payer MEDICARE, MEDICAID, SELFPAY ==
[2019-04-06 07:39] LABS: Abs Immature Grans 0.01 k/cumm (0.0-0.09); Absolute Basophil Count 0.02 k/cumm (0.0-0.2); Absolute Eosinophil Count 0.02 k/cumm (0.0-0.7); Absolute Lymphocyte Count 0.96 k/cumm (1.2-3.4); Absolute Monocyte Count 0.35 k/cumm (0.11-0.7); Absolute Neutrophil Count 1.11 k/cumm (1.2-6.7); Basophils % 0.8; Eosinophils % 0.8; HCT 38.1 % (40.0-50.0); HGB 13.2 g/dL (13.5-17.5); Immature Grans % 0.4; Lymphocytes % 38.9; Mean Corp. HGB Concentration 34.6 g/dL (32.0-36.0); Mean Corpuscular Hemoglobin 34.1 pg (27.0-33.0); Mean Corpuscular Volume 98.4 fL (80-95); Mean Platelet Volume 8.3 fL (8.0-11.0); Monocytes % 14.2; Neutrophils % 44.9; Platelet Count 147 x1000/uL (130-400); RBC 3.87 m/cumm (4.50-6.00); RBC Distribution Width 12.5 % (11.8-14.1); Reticulocyte 1.5 % (0.5-2.4); White Blood Cell Count 2.47 k/cumm (4.4-10.8)
[2019-04-06 07:57] LABS: Diff Comment Diff Reviewed; Polychromasia Present
[2019-04-06 08:32] LABS: ALT 35 U/L (12-78); AST 20 U/L (15-37); Albumin 3.7 g/dL (3.4-5.0); Alkaline Phosphatase 75 U/L (46-116); BUN 17 mg/dL (7-18); CREATININE 0.92 mg/dL (0.70-1.30); Calcium 9.1 mg/dL (8.5-10.1); Chloride 103 mmol/L (98-107); Glucose 122 mg/dL (70-100); LDH 248 U/L (85-227); Potassium 3.8 mmol/L (3.5-5.1); Sodium 139 mmol/L (136-145); Total Protein 6.4 g/dL (6.4-8.2)
== END 2019-04-06 07:27 ==
PROVIDERS: PCP Family Medicine; Visit Provider Internal Medicine Hematology & Oncology
DX: D59.1 Other autoimmune hemolytic anemias (principal)
CPT/HCPCS: 36415; 80053; 83615; 85025; 85045

== ENCOUNTER 2019-05-04 07:47 | Outpatient (CLI) | payer MEDICARE, MEDICAID, SELFPAY ==
[2019-05-04 08:05] LABS: Absolute Basophil Count 0.02 k/cumm (0.0-0.2); Absolute Eosinophil Count 0.05 k/cumm (0.0-0.7); Absolute Lymphocyte Count 1.34 k/cumm (1.2-3.4); Absolute Monocyte Count 0.71 k/cumm (0.11-0.7); Absolute Neutrophil Count 0.98 k/cumm (1.2-6.7); Basophils % 0.6; Eosinophils % 1.6; HCT 41.8 % (40.0-50.0); HGB 14.4 g/dL (13.5-17.5); Lymphocytes % 43.2; Mean Corp. HGB Concentration 34.4 g/dL (32.0-36.0); Mean Corpuscular Hemoglobin 32.5 pg (27.0-33.0); Mean Corpuscular Volume 94.4 fL (80-95); Mean Platelet Volume 8.5 fL (8.0-11.0); Monocytes % 22.9; Neutrophils % 31.7; Platelet Count 209 x1000/uL (130-400); RBC 4.43 m/cumm (4.50-6.00); RBC Distribution Width 12.4 % (11.8-14.1); Reticulocyte 1.5 % (0.5-2.4)
[2019-05-04 08:32] LABS: ALT 35 U/L (12-78); AST 20 U/L (15-37); Albumin 3.8 g/dL (3.4-5.0); Alkaline Phosphatase 88 U/L (46-116); Anion Gap 11.8 mmol/L (3-11); BUN 13 mg/dL (7-18); CO2 25.2 mmol/L (21.0-32.0); CREATININE 0.89 mg/dL (0.70-1.30); Chloride 103 mmol/L (98-107); Glucose 153 mg/dL (70-100); Potassium 3.9 mmol/L (3.5-5.1); Sodium 140 mmol/L (136-145); Total Protein 6.4 g/dL (6.4-8.2)
[2019-05-04 08:36] LABS: Diff Comment Diff Reviewed; RBC Morphology Normal
[2019-05-04 08:43] LABS: LDH 171 U/L (85-227)
== END 2019-05-04 08:07 ==
PROVIDERS: PCP Family Medicine; Visit Provider Internal Medicine Hematology & Oncology
DX: D59.1 Other autoimmune hemolytic anemias (principal); I25.10 Atherosclerotic heart disease of native coronary artery without angina pectoris; E78.2 Mixed hyperlipidemia
CPT/HCPCS: 36415; 80053; 83615; 85025; 85045

== ENCOUNTER → 2019-05-06 09:37 | Outpatient (BNVA) | payer MEDICARE, MEDICAID, SELFPAY | PROVIDERS: PCP Family Medicine; Visit Provider Internal Medicine Cardiovascular Disease | DX: I25.5 Ischemic cardiomyopathy (principal); E78.2 Mixed hyperlipidemia; I25.2 Old myocardial infarction; Z95.5 Presence of coronary angioplasty implant and graft; I25.10 Atherosclerotic heart disease of native coronary artery without angina pectoris; E11.9 Type 2 diabetes mellitus without complications; I10 Essential (primary) hypertension | CPT/HCPCS: 99214 ==

== ENCOUNTER 2019-05-18 07:03 | Outpatient (CLI) | payer MEDICARE, MEDICAID, SELFPAY ==
[2019-05-18 08:03] LABS: Anion Gap 10.8 mmol/L (3-11); BUN 19 mg/dL (7-18); CO2 25.2 mmol/L (21.0-32.0); CREATININE 0.87 mg/dL (0.70-1.30); Calcium 9.3 mg/dL (8.5-10.1); Chloride 105 mmol/L (98-107); Glucose 112 mg/dL (70-100); Sodium 141 mmol/L (136-145)
== END 2019-05-18 07:23 ==
PROVIDERS: PCP Family Medicine; Visit Provider Family Medicine
DX: R73.9 Hyperglycemia, unspecified (principal)
CPT/HCPCS: 36415; 80048

== ENCOUNTER 2019-08-04 08:38 | Outpatient (CLI) | payer MEDICARE, MEDICAID, SELFPAY ==
[2019-08-04 09:09] LABS: Abs Immature Grans 0.01 k/cumm (0.0-0.09); Absolute Basophil Count 0.02 k/cumm (0.0-0.2); Absolute Eosinophil Count 0.12 k/cumm (0.0-0.7); Absolute Lymphocyte Count 1.02 k/cumm (1.2-3.4); Absolute Monocyte Count 0.82 k/cumm (0.11-0.7); Absolute Neutrophil Count 4.61 k/cumm (1.2-6.7); Basophils % 0.3; Eosinophils % 1.8; HCT 40.5 % (40.0-50.0); HGB 14.1 g/dL (13.5-17.5); Immature Grans % 0.2; Lymphocytes % 15.5; Mean Corp. HGB Concentration 34.8 g/dL (32.0-36.0); Mean Corpuscular Hemoglobin 31.3 pg (27.0-33.0); Mean Platelet Volume 8.6 fL (8.0-11.0); Monocytes % 12.4; Neutrophils % 69.8; Platelet Count 213 x1000/uL (130-400); RBC Distribution Width 14.5 % (11.8-14.1); Reticulocyte 1.2 % (0.5-2.4)
[2019-08-04 09:29] LABS: ALT 36 U/L (16-63); AST 20 U/L (15-37); Albumin 3.8 g/dL (3.4-5.0); Alkaline Phosphatase 108 U/L (46-116); Anion Gap 7.3 mmol/L (3-11); BUN 16 mg/dL (7-18); Bilirubin, Total 0.9 mg/dL (0.2-1.0); CO2 28.7 mmol/L (21.0-32.0); CREATININE 0.93 mg/dL (0.70-1.30); Chloride 107 mmol/L (98-107); Glucose 120 mg/dL (70-100); LDH 148 U/L (85-227); Potassium 4.4 mmol/L (3.5-5.1); Sodium 143 mmol/L (136-145); Total Protein 6.6 g/dL (6.4-8.2)
== END 2019-08-04 08:58 ==
PROVIDERS: PCP Family Medicine; Visit Provider Internal Medicine Hematology & Oncology
DX: D59.1 Other autoimmune hemolytic anemias (principal)
CPT/HCPCS: 80053; 83615; 85025; 85045

== ENCOUNTER 2019-10-28 10:15 | Outpatient (CLI) | payer MEDICARE, MEDICAID, SELFPAY ==
[2019-10-28 10:47] LABS: Abs Immature Grans 0.02 k/cumm (0.0-0.09); Absolute Basophil Count 0.02 k/cumm (0.0-0.2); Absolute Eosinophil Count 0.13 k/cumm (0.0-0.7); Absolute Lymphocyte Count 1.66 k/cumm (1.2-3.4); Absolute Monocyte Count 0.77 k/cumm (0.11-0.7); Absolute Neutrophil Count 3.75 k/cumm (1.2-6.7); Basophils % 0.3; HCT 43.8 % (40.0-50.0); HGB 15.3 g/dL (13.5-17.5); Immature Grans % 0.3 %; Lymphocytes % 26.1; Mean Corp. HGB Concentration 34.9 g/dL (32.0-36.0); Mean Corpuscular Hemoglobin 31.8 pg (27.0-33.0); Mean Corpuscular Volume 91.1 fL (80-95); Mean Platelet Volume 8.6 fL (8.0-11.0); Monocytes % 12.1; Neutrophils % 59.2; Platelet Count 190 x1000/uL (130-400); RBC 4.81 m/cumm (4.50-6.00); RBC Distribution Width 13.7 % (11.8-14.1); Reticulocyte 1.3 % (0.5-2.4); White Blood Cell Count 6.35 k/cumm (4.4-10.8)
[2019-10-28 11:03] LABS: ALT 48 U/L (16-63); AST 22 U/L (15-37); Alkaline Phosphatase 105 U/L (46-116); Anion Gap 10.6 mmol/L (3-11); BUN 24 mg/dL (7-18); Bilirubin, Total 0.6 mg/dL (0.2-1.0); CO2 27.4 mmol/L (21.0-32.0); CREATININE 0.83 mg/dL (0.70-1.30); Calcium 9.3 mg/dL (8.5-10.1); Chloride 106 mmol/L (98-107); Glucose 109 mg/dL (74-106); LDH 143 U/L (85-227); Potassium 4.4 mmol/L (3.5-5.1); Sodium 144 mmol/L (136-145); Total Protein 6.5 g/dL (6.4-8.2)
== END 2019-10-28 10:35 ==
PROVIDERS: PCP Family Medicine; Visit Provider Internal Medicine Hematology & Oncology
DX: D59.1 Other autoimmune hemolytic anemias (principal)
CPT/HCPCS: 36415; 80053; 83615; 85025; 85045

== ENCOUNTER → 2020-02-14 09:01 | Outpatient (BNVA) | payer MEDICARE, MEDICAID, SELFPAY | PROVIDERS: PCP Family Medicine; Referring Provider Family Medicine; Visit Provider Internal Medicine Cardiovascular Disease | DX: I25.5 Ischemic cardiomyopathy (principal); I25.10 Atherosclerotic heart disease of native coronary artery without angina pectoris; Z95.5 Presence of coronary angioplasty implant and graft; E11.9 Type 2 diabetes mellitus without complications | CPT/HCPCS: 99204; 99215 ==

== ENCOUNTER 2020-03-08 02:38 | Outpatient (CLI) | payer MEDICARE, MEDICAID, SELFPAY ==
[2020-03-08 11:59] LABS: Abs Immature Grans 0.02 k/cumm (0.0-0.09); Absolute Basophil Count 0.01 k/cumm (0.0-0.2); Absolute Eosinophil Count 0.06 k/cumm (0.0-0.7); Absolute Lymphocyte Count 1.95 k/cumm (1.2-3.4); Absolute Monocyte Count 0.67 k/cumm (0.11-0.7); Absolute Neutrophil Count 5.42 k/cumm (1.2-6.7); Basophils % 0.1; Eosinophils % 0.7; HCT 44.2 % (40.0-50.0); HGB 15.7 g/dL (13.5-17.5); Immature Grans % 0.2 %; Mean Corp. HGB Concentration 35.5 g/dL (32.0-36.0); Mean Corpuscular Hemoglobin 33.4 pg (27.0-33.0); Mean Platelet Volume 8.7 fL (8.0-11.0); Monocytes % 8.2; Neutrophils % 66.8; Platelet Count 200 x1000/uL (130-400); RBC Distribution Width 13.3 % (11.8-14.1); White Blood Cell Count 8.13 k/cumm (4.4-10.8)
[2020-03-08 12:13] LABS: ALT 46 U/L (16-63); AST 21 U/L (15-37); Albumin 4.1 g/dL (3.4-5.0); Alkaline Phosphatase 103 U/L (46-116); Anion Gap 9.9 mmol/L (3-11); BUN 22 mg/dL (7-18); CO2 26.1 mmol/L (21.0-32.0); Calcium 9.2 mg/dL (8.5-10.1); Chloride 102 mmol/L (98-107); Glucose 171 mg/dL (74-106); Sodium 138 mmol/L (136-145); Total Protein 6.7 g/dL (6.4-8.2)
== END 2020-03-08 02:58 ==
PROVIDERS: PCP Family Medicine; Visit Provider Internal Medicine Hematology & Oncology
DX: C91.10 Chronic lymphocytic leukemia of B-cell type not having achieved remission (principal)
CPT/HCPCS: 36415; 80053; 85025

== ENCOUNTER 2020-07-05 12:52 | Outpatient (CLI) | payer MEDICARE, MEDICAID, SELFPAY ==
[2020-07-05 14:49] LABS: Abs Immature Grans 0.01 10^3/uL (0.0-0.06); Absolute Basophil Count 0.03 10^3/uL (0.0-0.2); Absolute Eosinophil Count 0.08 10^3/uL (0.0-0.7); Absolute Monocyte Count 0.66 10^3/uL (0.1-0.8); Absolute Neutrophil Count 4.85 10^3/uL (1.2-6.7); Basophils % 0.4; Eosinophils % 1.1; HCT 43.1 % (40.0-50.0); HGB 15.1 g/dL (13.5-17.5); Immature Grans % 0.1; MCH 33.3 pg (27.0-33.0); MCV 95.1 fL (80-95); MPV 8.7 fL (8.0-11.0); Monocytes % 9.3; Neutrophils % 68.1; Nucleated RBC 0 %; Platelet Count 166 10^3/uL (130-400); RBC 4.53 10^6/uL (4.36-5.78); RDW 12.6 % (11.8-14.1); RDW-SD 43.7 fL; WBC 7.13 10^3/uL (4.4-10.8)
[2020-07-05 15:04] LABS: ALT 44 U/L (16-63); AST 19 U/L (15-37); Albumin 4.1 g/dL (3.4-5.0); Alkaline Phosphatase 93 U/L (46-116); Anion Gap 6.4 mmol/L (3-11); BUN 21 mg/dL (7-18); CO2 27.6 mmol/L (21.0-32.0); CREATININE 0.93 mg/dL (0.70-1.30); Chloride 104 mmol/L (98-107); Glucose 130 mg/dL (74-106); Potassium 4.1 mmol/L (3.5-5.1); Sodium 138 mmol/L (136-145); Total Protein 6.7 g/dL (6.4-8.2)
== END 2020-07-05 13:12 ==
PROVIDERS: PCP Family Medicine; Visit Provider Internal Medicine Hematology & Oncology
DX: C91.10 Chronic lymphocytic leukemia of B-cell type not having achieved remission (principal)
CPT/HCPCS: 36415; 80053; 85025

== ENCOUNTER → 2020-08-15 12:04 | Outpatient (BNVA) | payer MEDICARE, MEDICAID, SELFPAY | PROVIDERS: PCP Family Medicine; Referring Provider Family Medicine; Visit Provider Internal Medicine Cardiovascular Disease | DX: I25.10 Atherosclerotic heart disease of native coronary artery without angina pectoris (principal); I25.5 Ischemic cardiomyopathy; E78.2 Mixed hyperlipidemia; R03.0 Elevated blood-pressure reading, without diagnosis of hypertension; E11.9 Type 2 diabetes mellitus without complications | CPT/HCPCS: 99441; 99213 ==

== ENCOUNTER 2020-11-29 02:34 | Outpatient (CLI) | payer MEDICARE, MEDICAID, SELFPAY ==
[2020-11-29 07:28] LABS: Abs Immature Grans 0.03 10^3/uL (0.0-0.06); Absolute Basophil Count 0.04 10^3/uL (0.0-0.2); Absolute Monocyte Count 0.68 10^3/uL (0.1-0.8); Absolute Neutrophil Count 4.79 10^3/uL (1.2-6.7); Basophils % 0.5; Eosinophils % 1.3; HCT 45.5 % (40.0-50.0); HGB 15.9 g/dL (13.5-17.5); Immature Grans % 0.4; Lymphocytes % 27.1; MCH 33.2 pg (27.0-33.0); MCHC 34.9 % (32.0-36.0); Monocytes % 8.8; Neutrophils % 61.9; Nucleated RBC 0 %; Platelet Count 197 10^3/uL (130-400); RBC 4.79 10^6/uL (4.36-5.78); RDW 12.4 % (11.8-14.1); RDW-SD 42.8 fL; WBC 7.74 10^3/uL (4.4-10.8)
[2020-11-29 07:47] LABS: ALT 53 U/L (16-63); AST 19 U/L (15-37); Albumin 4.1 g/dL (3.4-5.0); Alkaline Phosphatase 105 U/L (46-116); BUN 23 mg/dL (7-18); Bilirubin, Total 1.1 mg/dL (0.2-1.0); Calcium 8.9 mg/dL (8.5-10.1); Chloride 104 mmol/L (98-107); Glucose 128 mg/dL (74-106); Potassium 4.2 mmol/L (3.5-5.1); Sodium 138 mmol/L (136-145); Total Protein 6.9 g/dL (6.4-8.2)
== END 2020-11-29 02:35 | disposition home or self-care (01) ==
PROVIDERS: PCP Family Medicine; Visit Provider Internal Medicine Hematology & Oncology
DX: C91.10 Chronic lymphocytic leukemia of B-cell type not having achieved remission (principal)
CPT/HCPCS: 36415; 80053; 85025

== ENCOUNTER → 2021-02-08 11:01 | Outpatient (BNVA) | payer MEDICARE, MEDICAID, SELFPAY | PROVIDERS: PCP Family Medicine; Referring Provider Family Medicine; Visit Provider Internal Medicine Cardiovascular Disease | DX: I25.5 Ischemic cardiomyopathy (principal); I25.10 Atherosclerotic heart disease of native coronary artery without angina pectoris | CPT/HCPCS: 99212; 99442 ==

== ENCOUNTER 2021-05-30 02:58 | Outpatient (CLI) | payer MEDICARE, MEDICAID, SELFPAY ==
[2021-05-30 07:23] LABS: Abs Immature Grans 0.01 10^3/uL (0.0-0.06); Absolute Basophil Count 0.04 10^3/uL (0.0-0.2); Absolute Eosinophil Count 0.16 10^3/uL (0.0-0.7); Absolute Lymphocyte Count 1.81 10^3/uL (1.2-3.4); Absolute Neutrophil Count 4.01 10^3/uL (1.2-6.7); Basophils % 0.6; Eosinophils % 2.4; HCT 45.4 % (40.0-50.0); HGB 15.5 g/dL (13.5-17.5); Immature Grans % 0.2; Lymphocytes % 27.3; MCHC 34.1 % (32.0-36.0); MCV 96.6 fL (80-95); MPV 8.7 fL (8.0-11.0); Neutrophils % 60.5; Nucleated RBC 0 %; Platelet Count 168 10^3/uL (130-400); RDW 12.4 % (11.8-14.1); WBC 6.63 10^3/uL (4.4-10.8)
[2021-05-30 07:37] LABS: ALT 42 U/L (16-63); AST 17 U/L (15-37); Albumin 3.9 g/dL (3.4-5.0); Alkaline Phosphatase 97 U/L (46-116); Anion Gap 7.8 mmol/L (3-11); BUN 18 mg/dL (7-18); CO2 28.2 mmol/L (21.0-32.0); CREATININE 0.9 mg/dL (0.70-1.30); Calcium 8.7 mg/dL (8.5-10.1); Chloride 104 mmol/L (98-107); Glucose 120 mg/dL (74-106); LDH 131 U/L (85-227); Potassium 4.3 mmol/L (3.5-5.1); Sodium 140 mmol/L (136-145); Total Protein 6.7 g/dL (6.4-8.2)
== END 2021-05-30 02:59 | disposition home or self-care (01) ==
LOC: LBO 02:58
PROVIDERS: PCP Family Medicine; Visit Provider Internal Medicine Hematology & Oncology
DX: C91.10 Chronic lymphocytic leukemia of B-cell type not having achieved remission (principal); D59.19 Other autoimmune hemolytic anemia
CPT/HCPCS: 36415; 80053; 83615; 85025

== ENCOUNTER → 2021-08-27 07:42 | Outpatient (BNVA) | payer MEDICARE, MEDICAID, SELFPAY | PROVIDERS: PCP Family Medicine; Referring Provider Family Medicine; Visit Provider Internal Medicine Cardiovascular Disease | DX: I25.5 Ischemic cardiomyopathy (principal); I25.10 Atherosclerotic heart disease of native coronary artery without angina pectoris; E78.2 Mixed hyperlipidemia; E11.9 Type 2 diabetes mellitus without complications | CPT/HCPCS: 99212; 99442 ==

== ENCOUNTER 2021-10-11 04:30 | Outpatient (CLI) | payer MEDICARE, MEDICAID, SELFPAY ==
--- NOTE | 2021-10-11 10:00 | NS.NUTBLAN_ITS ---
Prakash and Dawna() attended diabetes self education and management education today. 6' 228 lbs, BMI 30. PMH: CAD, DM2(newy dx), HTN. Meds: metoporpol, aspirin, lipitor, toprol. Labs: fasting blood sugar: 132 mg/dl, A1C: 6.1%. Random finger stick today: 113 mg/dl. Diet Recall: omelete, sandwich, sugar free popsicles, chicken, rice and vegetables Exercise: lifts bar bells, works around house. Prakash reports his back pain keeps him more sedentary than he likes. Dawna and Prakash have been cutting back on their sugar intake since recent new dx with Dm2. Today's session reviewed how to count carbs and follow a lower carb diet plan with emphasis on complex carbs, lean protein and non starchy vegetalbes. Reviewed technique for finger sticks and frequency of checking finger sticks. At this time DM2 is managed with diet/life style changes. With diet changes, expect 10% weight loss in next 90 days. Hopefully will be able to avoid DM meds as very motivated to avoid additional medications. No follow up planned at this time, will reach out for support prn.
== END 2021-10-11 04:31 | disposition home or self-care (01) ==
LOC: DS 04:30
PROVIDERS: PCP Family Medicine; Visit Provider Dietitian, Registered
DX: E11.9 Type 2 diabetes mellitus without complications (principal); Z71.3 Dietary counseling and surveillance
CPT/HCPCS: 97802

== ENCOUNTER 2021-12-21 13:55 | Inpatient (IN) | payer MEDICARE, MEDICAID, SELFPAY ==
[2021-12-21] VITALS (50 sets, daily range): BP systolic 53–168; BP diastolic 19–78; PULSE 63–109; RESP 11–31; TEMP 36.4–36.9; O2SAT 93–98
--- NOTE | 2021-12-21 13:45 | RT.EKG_ITS ---
APPROVED REPORT Exam: Resting ECG Reason for Exam: CHEST PAIN Patient Location: E HR:87 bpm ECG Measurements Heart Rate 87 AXIS ME 206 P 37 QRSd 92 QRS -26 QT 378 T 56 QTc 456 Conclusion Sinus rhythm...normal P axis, V-rate 60- 99 sinus rhythm, left axis, PVC, ST segment depression lead II
--- NOTE | 2021-12-21 14:29 | W.ED.GENAD ---
Discharge Plan Disposition Patient Disposition: [facility] INPATIENT Condition: Serious Discharge Details Clinical Impression: Non-ST elevation [place] (NSTEMI) Admit Date/Time: 12/21/21 20:02 Admit Provider: Samuel Smith Attending Provider: Samuel Smith Primary Care Provider: Nnamdi Montilla ED Provider: Chani Ventura Discharge Data Discharge Date/Time-TO BE ENTERED AT DEPARTURE: 12/21/21 21:44 Medical Decision Making <MARIA Skinner - Last Filed: 12/22/21 08:12> This is a 76-year-old gentleman, past medical history of diabetes, ischemic cardiomyopathy, [place], stent x2, presenting from [facility] for potential atypical chest pain which is presenting as upper back pain between his scapulas. EKG reveals no STEMI. Patient is initially requesting to leave AMA but after a lengthy conversation he is agreeable to obtaining laboratory values and have an IV but he adamantly declines a chest CTA. Will initiate cardiac work-up including a D-dimer, chest x-ray, and I discussed with him that this is abnormal I will once again request that he let us get a CTA. We will give full dose aspirin and nitro. Nitro was offered but declined because he states he is now pain-free. Concern for ACS, PE, dissection, etc. Laboratory values reveal a troponin of 189, D-dimer pending. Laboratory values otherwise grossly unremarkable. Concern is that of an STEMI. At time of shift change my colleague and I, YEN Ventura, went into the room where I personally handed off his medical care and explained the gravity of the situation, and elevated troponin. He continues to decline a chest CTA as we do not have his D-dimer back yet. He tells me he is currently chest pain-free. He once again discussed leaving AMA but after discussing the importance of repeat troponin, further observation, and cardiology consultation he is agreeable to staying here in the ER. Medical Records Medical records reviewed: Yes I reviewed the patient's medical records. Imaging Data Radiologic Study: Attestation: I personally reviewed and interpreted this imaging study as follows: Imaging: X-Ray Radiologist's impression: Exam(s) XR FOREARM RT EXAM: XR FOREARM RT CLINICAL HISTORY: ski accident laceration TECHNIQUE: COMPARISON: No exams were available for comparison FINDINGS: Two views were obtained. There is an apparent soft tissue defect over the mid forearm. No underlying bony abnormality is seen. Lab Data Lab results reviewed: Yes I reviewed the patient's lab results. Labs: Laboratory Tests Range/Units 12/21/21 12/21/21 12/21/21 14:45 14:45 15:05 WBC (4.4-10.8) 10^3/uL 9.65 RBC (4.36-5.78) 10^6/uL 4.63 Hgb (13.5-17.5) g/dL 15.6 Hct (40.0-50.0) % 44.0 MCV (80-95) fL 95.0 MCH (27.0-33.0) pg 33.7 H MCHC (32.0-36.0) % 35.5 RDW (11.8-14.1) % 12.4 Plt Count (130-400) 10^3/uL 176 MPV (8.0-11.0) fL 9.4 Immature Gran % 0.3 Neutrophils % 73.3 Lymphocytes % 17.8 Monocytes % 7.9 Eosinophils % 0.4 Basophils % 0.3 Nucleated RBC % % 0 Absolute Neutrophils (1.2-6.7) 10^3/uL 7.07 H Absolute Lymphocytes (1.2-3.4) 10^3/uL 1.72 Absolute Monocytes (0.1-0.8) 10^3/uL 0.76 Absolute Eosinophils (0.0-0.7) 10^3/uL 0.04 Absolute Basophils (0.0-0.2) 10^3/uL 0.03 PT (9.3-11.0) sec 10.4 INR (0.9-1.1) 1.0 APTT (21.0-27.5) sec 21.0 Sodium (136-145) mmol/L 142 Potassium (3.5-5.1) mmol/L 3.6 Chloride (98-107) mmol/L 106 Carbon Dioxide (21.0-32.0) mmol/L 21.8 Anion Gap (3-11) mmol/L 14.2 H BUN (7-18) mg/dL 28 H Creatinine (0.70-1.30) mg/dL 1.0 Estimated GFR/1.73 m2 (mL/min/1.73m2) >= 60.00 Glucose (74-106) mg/dL 131 H Calcium (8.5-10.1) mg/dL 9.4 Magnesium (1.8-2.4) mg/dL 2.1 Total Bilirubin (0.2-1.0) mg/dL 1.1 H AST (15-37) U/L 20 ALT (16-63) U/L 46 Alkaline Phosphatase (46-116) U/L 96 Troponin I (<or=60) ng/L 189 H* Total Protein (6.4-8.2) g/dL 7.1 Albumin (3.4-5.0) g/dL 4.6 ECG Data Attestation: I personally reviewed and interpreted this ECG (s) as follows: Interpretation: Sinus rhythm, ventricular rate of 87, no Stemi <Chani Ventura - Last Filed: 12/21/21 22:11> This is a 76-year-old gentleman, past medical history of diabetes, ischemic cardiomyopathy, [place], stent x2, presenting from [facility] for potential atypical chest pain which is presenting as upper back pain between his scapulas. EKG reveals no STEMI. Patient is initially requesting to leave AMA but after a lengthy conversation he is agreeable to obtaining laboratory values and have an IV but he adamantly declines a chest CTA. Will initiate cardiac work-up including a D-dimer, chest x-ray, and I discussed with him that this is abnormal I will once again request that he let us get a CTA. We will give full dose aspirin and nitro. Nitro was offered but declined because he states he is now pain-free. Concern for ACS, PE, dissection, etc. Laboratory values reveal a troponin of 189, D-dimer pending. Laboratory values otherwise grossly unremarkable. Concern is that of an STEMI. At time of shift change my colleague and I, YEN Ventura, went into the room where I personally handed off his medical care and explained the gravity of the situation, and elevated troponin. He continues to decline a chest CTA as we do not have his D-dimer back yet. He tells me he is currently chest pain-free. He once again discussed leaving AMA but after discussing the importance of repeat troponin, further observation, and cardiology consultation he is agreeable to staying here in the ER. 1601: S[place]: Care assumed from provider (MARIA Green Please see their initial HPI, PE, and documentation. Discussed patient details and case and pending workup and disposition. Patient is hemodynamically stable, and alert and oriented. At time of signout there was a bedside handoff in the patient was given the information of the elevated troponin and recommendations for admission or transfer. He verbalizes understanding. At this time CBC shows no leukocytosis, D-dimer slightly elevated at 763 which according to the age adjusted D-dimer the cutoff is 760. I will discuss this with patient. Glucose is 131 initial troponin is elevated with a result of 189. EXAM: XR CHEST 2V PA LATERAL CLINICAL HISTORY: Pain between scapulas TECHNIQUE: 2D digital imaging was performed. COMPARISON: No exams were available for comparison FINDINGS: The heart is not enlarged. The lungs are clear and well expanded. No pleural effusion seen. Mediastinal contours appear intact. IMPRESSION: Normal chest. Nitroglycerin sublingual x3 was ordered by my colleague which I do recommend. Did instruct RN to give the medication. CTA chest ordered patient is agreeable to have the test done. Heparin bolus and drip for ACS syndrome ordered. Patient had 2 sublingual nitro which dropped his systolic blood pressure into the 90s but I did not change any symptoms. He is not complaining of any pain right now at this time. Serial troponin is pending. Will consult with cardiology at [facility]. 1709: Critical value received from the lab. Serial troponin is 246. 1712: [facility] transfer center contacted. She reports they are full and listing for tomorrow. Repeat EKG ordered. CTA Chest: COMPARISON: CT thorax abd/pel CTA 11/14/2018 6:47 PM FINDINGS: Pulmonary arteries: Normal. No pulmonary emboli. Aorta: Moderate atherosclerotic calcification of the aorta and its branches. Lungs: Unremarkable. No consolidation. No masses. Pleural spaces: Unremarkable. No pneumothorax. No pleural effusion. Heart: Coronary artery calcifications. Lymph nodes: Unremarkable. No enlarged lymph nodes. Liver: Subcentimeter hypoattenuating lesions within the liver, too small to further characterize. Pancreas: Fatty involution of the pancreas. Bones/joints: Mild multilevel degenerative changes of the spine. Soft tissues: Unremarkable. IMPRESSION: 1. No pulmonary emboli. 2. Clear Lungs 1855: [facility] cardiology call back spoke with Dr. Warren Cardiology discussed patient case and details she verbalizes understanding. She does recommend transfer for catheterization currently they are listing for tomorrow. He is accepted at [facility] tomorrow accepting physician is Dr. Merritt. She does recommend a loading dose of 300 mg of Plavix which was ordered now, she also recommends daily 75 mg, daily aspirin and continue the heparin drip. 1899: Will page hospitalist. 1951: Hospitalist paged again, 2000: Spoke with Dr. Smith discussed case in detail regarding patient case and details he agrees to accept patient for admission. Patient transferred up to the floor in hemodynamically stable condition on heparin drip. Dr. Smith did come to the emergency department for patient evaluation. This text was generated using [employer] system, please disregard any oddities of phrase or misspellings. HPI <MARIA Skinner - Last Filed: 12/22/21 08:12> General Mode of arrival: ambulatory. Date/Time Provider Initiated Documentation: 12/21/21 14:29. Limitations to Documentation: no limitations. Information obtained by: patient. 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 He reports the pain is dull and aching, denies ripping or tearing. He reports that he recently began working out and is sure it is just muscle pain. He denies recent illness or trauma. He denies fever, anterior chest pain, shortness of breath, abdominal pain, nausea, vomit, low back pain, change in bowel or bladder function, pain or swelling in his extremities. During my HPI patient is questioning why we need to take her blood work, establish IV, and is questioning whether he should leave right now or not. I explained to him in length my concern given his age, past medical history, and presentation. He is agreeable to allowing IV access, laboratory values, and a work-up but he states that he needs to get home at a decent time. Related Data Home Medications Medication Instructions Recorded Confirmed aspirin 81 mg tablet,delayed 81 mg PO DAILY 12/14/18 12/21/21 release lisinopril 5 mg tablet 5 mg PO DAILY #90 tab 04/23/21 12/21/21 atorvastatin 80 mg tablet 80 mg PO DAILY #90 tab 07/12/21 12/21/21 metoprolol succinate 25 mg 25 mg PO DAILY #90 tab 07/12/21 12/21/21 tablet,extended release 24 hr metoprolol succinate 50 mg 50 mg PO DAILY #90 tab 07/12/21 12/21/21 tablet,extended release 24 hr spironolactone 25 mg tablet 12.5 mg PO DAILY #45 tab 07/12/21 12/21/21 blood-glucose meter #1 ea 07/26/21 12/21/21 nitroglycerin 0.4 mg sublingual 0.4 mg SL Q5-15M PRN #20 tab 10/02/21 12/21/21 tablet blood sugar diagnostic (Blood #100 ea 10/25/21 12/21/21 Glucose Test) lancets #100 ea 10/25/21 12/21/21 Previous Rx's Medication Instructions Recorded lisinopril 5 mg tablet 5 mg PO DAILY #90 tab 04/23/21 atorvastatin 80 mg tablet 80 mg PO DAILY #90 tab 07/12/21 metoprolol succinate 25 mg 25 mg PO DAILY #90 tab 07/12/21 tablet,extended release 24 hr metoprolol succinate 50 mg 50 mg PO DAILY #90 tab 07/12/21 tablet,extended release 24 hr spironolactone 25 mg tablet 12.5 mg PO DAILY #45 tab 07/12/21 blood-glucose meter #1 ea 07/26/21 nitroglycerin 0.4 mg sublingual 0.4 mg SL Q5-15M PRN #20 tab 10/02/21 tablet blood sugar diagnostic (Blood #100 ea 10/25/21 Glucose Test) lancets #100 ea 10/25/21 Allergies Allergy/AdvReac Type Severity Reaction Status Date / Time red blood cells Allergy Severe clinically Uncoded 12/21/21 13:25 significant vang agglutinin(see comment) General Stated Complaint: Nk/Back Pain SUSU: 3 Review of Systems <MARIA Skinner - Last Filed: 12/22/21 08:12> Constitutional Constitutional: Denies fever(s) and Denies headache(s) Eyes Eyes: Denies change in vision ENT Ears, Nose, Mouth, and Throat: Denies headache(s) and Denies neck pain Cardiovascular Cardiovascular: Denies chest pain and Denies dyspnea Respiratory Respiratory: Denies cough and Denies dyspnea Gastrointestinal Gastrointestinal: Denies abdominal pain, Denies nausea and Denies vomiting Musculoskeletal Musculoskeletal: Reports back pain, Denies neck pain, Denies numbness and Denies tingling Integumentary/Breasts Skin/Breast: Denies rash Neurologic Neurologic: Denies headache(s), Denies numbness and Denies tingling Psychiatric Psychiatric: Reports anxiety Hematologic/Lymphatic Hematologic/Lymphatic: Denies easy bleeding and Denies easy bruising PFSH <MARIA Skinner - Last Filed: 12/22/21 08:12> All Active Problems (Updated 12/22/21 @ 08:12 by MARIA Skinner) Non-ST elevation [place] (NSTEMI) (Acute) Diabetes mellitus type II, controlled (Acute) Hyperglycemia (Acute) Blood pressure elevated without history of HTN (Acute) Ischemic cardiomyopathy (Chronic) Hyperlipidemia, mixed (Chronic) Status post non-ST elevation myocardial infarction (NSTEMI) (Chronic) History of coronary artery stent placement (Chronic) CAD (coronary artery disease) (Chronic) 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 Done 11/15/18 and 11/17/18 @ [facility] NSTEMI (non-ST elevated myocardial infarction) (Acute) Medical History Diabetes mellitus Family History Mother Diabetes Social History Smoking/Tobacco Use Status: Never Smoking risk assessment performed?: Yes Alcohol Intake: former Drug use: Never Substance use type: does not use Household members: significant other Number of Children: 0 current occupation: retired, sales, band, antiques What is your relationship status?: living with partner Panel score (0-1 are the most socially isolated patients): 1 What type of physical activity do you participate in: regular exercise Seatbelt use: always Drive intox or ride w/intox vending route driver: No Working smoke detector in home: Yes Carbon monox detector in home: Yes Do you feel safe at home: Yes Do you feel safe in your relationship?: Yes Exam <MARIA Skinner Filed: 12/22/21 08:12> Const General: cooperative, healthy appearing, comfortable, no acute distress and anxious Orientation: alert, awake and oriented x3 HENMT Head: normal to inspection, normocephalic and atraumatic Face and sinus: normal facial exam Mouth: moist mucous membranes Eyes General: appearance normal, both eyes and all related structures Conjunctivae: conjunctivae normal Neck Neck: normal visual inspection, full ROM, trachea midline, supple and nontender Chest Chest: normal inspection of the chest and normal palpation of entire chest wall Resp Effort & Inspection: normal respiratory effort and able to speak in complete sentences Auscultation: clear to auscultation bilaterally Cardio Rate: regular rate Rhythm: regular rhythm GI Palpation: soft, not firm, no guarding, no pulsatile masses and nontender Back/Spine/Pelvis Back: No no CVA tenderness and No back tenderness Skin General skin exam: no rashes or lesions noted Neuro General: patient alert, patient awake, moves all extremities and no focal motor deficits Cognition: normal cognition Speech: speech normal Gait: normal gait Motor: muscle tone normal throughout Sensory Exam: no sensory deficits noted Extrem General: normal to inspection, full ROM and capillary refill normal Psych Appearance: grossly normal Mental Status: mental status grossly normal Course <MARAI Skinner Last Filed: 12/22/21 08:12> Vital Signs Vital signs: Vital Signs Temperature 36.4 C L 12/21/21 14:00 Pulse 84 12/21/21 14:00 Respiratory Rate 18 12/21/21 14:00 Blood Pressure 160/75 H 12/21/21 14:00 Pulse Oximetry 96 12/21/21 14:00 Temperature 36.4 C L 12/21/21 14:00 Temperature Source Temporal Artery Scan 12/21/21 14:00 Pulse 84 12/21/21 14:00 Respiratory Rate 18 12/21/21 14:00 Respiratory Effort 12/21/21 14:27 Blood Pressure 160/75 H 12/21/21 14:00 Blood Pressure Position Sitting 12/21/21 14:00 Pulse Oximetry 96 12/21/21 14:00 Oxygen Delivery Method Room Air 12/21/21 14:00 Oxygen Flow Rate 0 12/21/21 14:00 Critical Care Time <MARIA Skinner Last Filed: 12/22/21 08:12> Critical Care Time Critical Care Time: Yes Total Critical Care Time: 35 Attestation: Upon my evaluation, this patient had a high probability of clinically significant, life-threatening deterioration due to their current medical conditions, which required my direct attention, intervention, and personal management. I have personally provided greater than 30 minutes of critical care time exclusive of the time spend on separately billable procedures. Time includes obtaining a history, examining the patient, pulse oximetry, review of laboratory data, radiology results, discussion with consultants, arranging urgent treatment with development of a management plan, evaluation of patient's response to treatment, and monitoring for potential decompensation. Interventions were performed as documented above. Sign Out <MARIA Skinner - Last Filed: 12/22/21 08:12> Sign Out Data: Sign Out Comment: Atypical chest pain that presents as pain between his scapulas x1 week. Patient threatening to leave AMA but agreeable to initial work-up, adamantly declined CTA of the chest. Given aspirin but declines nitro. Initial troponin is elevated, presentation consistent with concerns of NSTEMI. Awaiting delta troponin and cardiology consult Last updated by Ye Velazquez PA at 12/21/21 15:53
--- NOTE | 2021-12-21 14:45 | DI.RAD_ITS ---
Exam(s) XR CHEST 2V PA LATERAL EXAM: XR CHEST 2V PA LATERAL CLINICAL HISTORY: Pain between scapulas TECHNIQUE: 2D digital imaging was performed. COMPARISON: No exams were available for comparison FINDINGS: The heart is not enlarged. The lungs are clear and well expanded. No pleural effusion seen. Mediastin al contours appear intact. IMPRESSION: Normal chest. RADIATION DOSE DELIVERED: Total DLP
[2021-12-21 15:15] LABS: Abs Immature Grans 0.03 10^3/uL (0.0-0.06); Absolute Basophil Count 0.03 10^3/uL (0.0-0.2); Absolute Eosinophil Count 0.04 10^3/uL (0.0-0.7); Absolute Lymphocyte Count 1.72 10^3/uL (1.2-3.4); Absolute Monocyte Count 0.76 10^3/uL (0.1-0.8); Absolute Neutrophil Count 7.07 10^3/uL (1.2-6.7); Basophils % 0.3; Eosinophils % 0.4; HGB 15.6 g/dL (13.5-17.5); Immature Grans % 0.3; Lymphocytes % 17.8; MCH 33.7 pg (27.0-33.0); MCHC 35.5 % (32.0-36.0); MPV 9.4 fL (8.0-11.0); Monocytes % 7.9; Neutrophils % 73.3; Nucleated RBC 0 %; Platelet Count 176 10^3/uL (130-400); RBC 4.63 10^6/uL (4.36-5.78); RDW 12.4 % (11.8-14.1); RDW-SD 42.7 fL; WBC 9.65 10^3/uL (4.4-10.8)
[2021-12-21 15:29] LABS: ALT 46 U/L (16-63); AST 20 U/L (15-37); Albumin 4.6 g/dL (3.4-5.0); Alkaline Phosphatase 96 U/L (46-116); Anion Gap 14.2 mmol/L (3-11); BUN 28 mg/dL (7-18); Bilirubin, Total 1.1 mg/dL (0.2-1.0); CO2 21.8 mmol/L (21.0-32.0); Calcium 9.4 mg/dL (8.5-10.1); Chloride 106 mmol/L (98-107); Glucose 131 mg/dL (74-106); Magnesium 2.1 mg/dL (1.8-2.4); Potassium 3.6 mmol/L (3.5-5.1); Sodium 142 mmol/L (136-145); Total Protein 7.1 g/dL (6.4-8.2)
[2021-12-21 15:33] LABS: Prothrombin Time 10.4 sec (9.3-11.0)
[2021-12-21 15:37] LABS: Troponin I 189 ng/L (<or=60)
[2021-12-21 15:51] LABS: D-Dimer 763 ng/mlFEU (<500)
[2021-12-21] MEDS: nitroGLYcerin 0.4 MG TAB SL (15:52)
[2021-12-21] MEDS: Aspirin 81 MG CHEW 324 MG CH (15:53)
--- NOTE | 2021-12-21 16:00 | DI.CT_ITS ---
Exam(s) CT CHEST PE CTA EXAM: CT CHEST PE CTA CLINICAL HISTORY: Chest pain, Elevated d-dimer. TECHNIQUE: Imaging Protocol: CT angiography of the chest was performed using pulmonary embolus everardo col. Multi planar reconstructions were performed. CONTRAST MATERIAL: Intravenous: Omnipaque 350 Contrast volume: 100 cc COMPARISON: CT CT thorax abd/pel CTA from 11/14/2018 FINDINGS: CHEST: PULMONARY ARTERIES: There are no obvious intraluminal filling defects to suggest acute pulmonary embo li. LUNGS: There are no infiltrates nor evidence of pulmonary infarction.. There are no pleural effusions . MEDIASTINUM: There is no hilar nor mediastinal adenopathy. Visualized thyroid unremarkable. CARDIAC: Heart size is upper normal. There is no pericardial effusion.Caliber of the thoracic aorta is within normal limits. There is no significant shift of the interventricular septum. PARTIALLY VISUALIZED UPPERMOST ABDOMEN: Tiny 1-2 millimeter calculus or polyp on the dependent wall o f the gallbladder. There are 2 adjacent subcapsular hypodensities in the peripheral right hepatic lo be, both measuring 6 millimeters. Difficult to assess accurately. These may be cysts or hemangiomas but difficult to assess accurately on arterial phase study only. OSSEOUS: No significant osseous lesions.. IMPRESSION: 1. No evidence of acute pulmonary emboli. No evidence of pulmonary infarction.No pleural effusions. 2. Lungs are clear. 3. RADIATION DOSE DELIVERED: 470.82mGy.cm Total DLP DATA REPOSITORY: All CT scans at this facility are submitted to the National Radiology Data Registry (NRDR) Dose Index Registry (DIR) with the [employer] (A[employer]). RADIATION OPTIMIZATION: All CT scans at this facility use at least one of these dose optimization te chniques: automated exposure control; mA and/or kV adjustment per patient size (includes targeted exa ms where dose is matched to clinical indication); or iterative reconstruction.
--- NOTE | 2021-12-21 17:00 | RT.EKG_ITS ---
APPROVED REPORT Exam: Resting ECG Reason for Exam: Repeat Patient Location: E HR:65 bpm ECG Measurements Heart Rate 65 AXIS WY 176 P -12 QRSd 93 QRS -24 QT 418 T 33 QTc 436 Conclusion Sinus rhythm...normal P axis, V-rate 60- 99
[2021-12-21] MEDS: Omnipaque 350 MG/ML 100 ML BTL IJ (17:05)
[2021-12-21] MEDS: Normal Saline Flush 10 ML SYR IVP ×2 (17:08→22:02)
[2021-12-21 17:10] LABS: Troponin I 246 ng/L (<or=60)
--- NOTE | 2021-12-21 17:43 | DI.VRAD_ITS ---
PROCEDURE INFORMATION: Exam: CTA Chest With Contrast Exam date and time: 12/21/2021 4:53 PM Age: 76 years old Clinical indication: Other: Chest pain TECHNIQUE: Imaging protocol: Computed tomographic angiography of the chest with contrast. 3D rendering (Not supervised by radiologist): MIP and/or 3D reconstructed images were created by the technologist. Contrast material: OMNIPAQUE 350; Contrast volume: 100 ml; Contrast route: INTRAVENOUS (IV); COMPARISON: CT thorax abd/pel CTA 11/14/2018 6:47 PM FINDINGS: Pulmonary arteries: Normal. No pulmonary emboli. Aorta: Moderate atherosclerotic calcification of the aorta and its branches. Lungs: Unremarkable. No consolidation. No masses. Pleural spaces: Unremarkable. No pneumothorax. No pleural effusion. Heart: Coronary artery calcifications. Lymph nodes: Unremarkable. No enlarged lymph nodes. Liver: Subcentimeter hypoattenuating lesions within the liver, too small to further characterize. Pancreas: Fatty involution of the pancreas. Bones/joints: Mild multilevel degenerative changes of the spine. Soft tissues: Unremarkable. IMPRESSION: 1. No pulmonary emboli. 2. Clear lungs. Dictated and Authenticated by: Shyam Holt MD. Ordering:MARILYN Wilde MD
[2021-12-21 18:13] LABS: Source Nasal/Nares
[2021-12-21] MEDS: Clopidogrel 300 MG TAB PO (19:21)
[2021-12-21 20:23] LABS: Bilirubin Negative (Negative); Blood Negative (Negative); Clarity Clear (Clear); Glucose Negative (Negative); Ketones 40 mg/dL (Negative); Leukocyte Esterase Negative (Negative); Nitrite Negative (Negative); pH 5.5 (5-8)
[2021-12-21 20:50] LABS: Bacteria Negative HPF (Negative); C & S Indicated? No; Casts Negative LPF (Negative); Crystals Negative HPF (Negative); Epithelial Cells Negative HPF (Negative); Mucus Negative (Negative); Other Cells Negative (Negative); RBC Negative HPF (0-2); WBC Negative HPF (0-5)
--- NOTE | 2021-12-21 21:41 | W.PM.HP.N ---
Assessment and Plan Assessment and plan (1) Elevated troponin: Status: Acute Assessment and plan: Reviewed his electrocardiograms. There is slight ST depression of lead I and V2 through V6 on his initial electrocardiogram. That normalized on the repeat ECG. His last troponin was slightly greater than admission 1. I am waiting for the third troponin now. (2) Back pain: Status: Acute Assessment and plan: This seems to be an anginal equivalent back pain. (3) Non-ST elevation [place] (NSTEMI): Status: Acute Assessment and plan: [facility] was consulted and he is on the list to be transferred when a bed is available. He will be maintained on aspirin, clopidogrel and intravenous heparin. If he becomes unstable will need to contact cardiology sooner than just waiting for a bed. History of Present Illness History of Present Illness Chief Complaint: back pain Narrative: This 76-year-old male has history of coronary artery disease. He had what he believes are 2 stents placed in his heart about 3 years ago. He says about 10 days ago began getting some intrascapular back pain that seem to be improved with rest. He could not tell me that activity made him worse but definitely rest has improved. He told his about this yesterday and again today and she suggested he come to the hospital to be evaluated. He says the pain seems similar to what he experienced 3 years ago although he thought this pain that he was experiencing the last 10 days was a muscle cramp in his back. Says the pain is actually a bit worse on the right side of his back compared to the left. There has been no radiation of the pain nor is there been any dyspnea, diaphoresis, nausea or neck pain. Is not experienced any chest discomfort with this. He is diabetic and says his last A1c was 5.9. He does not take any medicines for this. He does not use tobacco. There is a family history of heart disease. He denied having high blood pressure but does appear he is on multiple medicines for his blood pressure. He does not drink alcohol. Lives with his . He does not get regular exercise in the winter and spends a lot of time watching television in bed according to his . He has received the coronavirus vaccines but has not received a booster dose yet. He says he has thought about getting a booster but he says his doctor recommended against this. I do not see it noted that in the record. He and his do want to get a booster but he says that they do not have a computer at home nor cell phones and are trying to find a place to get a booster. I do not know of [facility] but I told him that definitely [facility] does give out boosters. I advised them to call to find out when they can get a booster. Emergency department found that he has a non-ST elevation [place] with elevated troponins. Another troponin level is pending. [facility] was called and they will work on getting him transferred there tomorrow under the care of Dr. Merritt. Bed was well available tonight. He is currently received clopidogrel, aspirin and is currently receiving heparin. He is not having any discomfort at this time and says last time he had a discomfort was a couple hours ago. Review of Systems Constitutional Constitutional: Denies chills, Denies excessive sweating, Denies fatigue, Denies fever(s) and Denies headache(s) ENT Ears, Nose, Mouth, and Throat: Denies headache(s) and Denies neck pain Cardiovascular Cardiovascular: Denies chest pain, Denies syncope, Denies rapid heart rate, Denies radiating jaw, neck or arm pain, Denies palpitations and Denies dyspnea Respiratory Respiratory: Denies cough, Denies pain on inspiration and Denies dyspnea Gastrointestinal Gastrointestinal: Denies abdominal pain, Denies diarrhea, Denies loose stools, Denies nausea and Denies vomiting Genitourinary Genitourinary: Denies difficulty urinating and Denies dysuria Musculoskeletal Musculoskeletal: Reports back pain and Denies neck pain Neurologic Neurologic: Denies syncope and Denies headache(s) Endocrine Endocrine: Denies excessive sweating, Denies fatigue and Denies palpitations PFSH All Active Problems (Updated 12/21/21 @ 17:10 by Chani Ventura) Elevated troponin (Acute) Back pain (Acute) Non-ST elevation [place] (NSTEMI) (Acute) Diabetes mellitus type II, controlled (Acute) Hyperglycemia (Acute) Blood pressure elevated without history of HTN (Acute) Ischemic cardiomyopathy (Chronic) Hyperlipidemia, mixed (Chronic) Status post non-ST elevation myocardial infarction (NSTEMI) (Chronic) History of coronary artery stent placement (Chronic) CAD (coronary artery disease) (Chronic) 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 Done 11/15/18 and 11/17/18 @ [facility] [place] NSTEMI (non-ST elevated myocardial infarction) (Acute) Medical History Diabetes mellitus Family History Mother Diabetes Social History Smoking/Tobacco Use Status: Never Smoking risk assessment performed?: Yes Alcohol Intake: former Drug use: Never Substance use type: does not use Household members: significant other Number of Children: 0 current occupation: retired, sales, band, antiques What is your relationship status?: living with partner Panel score (0-1 are the most socially isolated patients): 1 What type of physical activity do you participate in: regular exercise Seatbelt use: always Drive intox 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 Working smoke detector in home: Yes Carbon monox detector in home: Yes Do you feel safe at home: Yes Do you feel safe in your relationship?: Yes Meds Allergies and Home Medications Allergies Allergy/AdvReac Type Severity Reaction Status Date / Time red blood cells Allergy Severe clinically Uncoded 12/21/21 13:25 significant vang agglutinin(see comment) Home Medications Medication Instructions Recorded Confirmed Type aspirin 81 mg tablet,delayed 81 mg PO DAILY 12/14/18 12/21/21 History release lisinopril 5 mg tablet 5 mg PO DAILY #90 tab 04/23/21 12/21/21 Rx atorvastatin 80 mg tablet 80 mg PO DAILY #90 tab 07/12/21 12/21/21 Rx metoprolol succinate 25 mg 25 mg PO DAILY #90 tab 07/12/21 12/21/21 Rx tablet,extended release 24 hr metoprolol succinate 50 mg 50 mg PO DAILY #90 tab 07/12/21 12/21/21 Rx tablet,extended release 24 hr spironolactone 25 mg tablet 12.5 mg PO DAILY #45 tab 07/12/21 12/21/21 Rx blood-glucose meter #1 ea 07/26/21 12/21/21 Rx nitroglycerin 0.4 mg sublingual 0.4 mg SL Q5-15M PRN #20 tab 10/02/21 12/21/21 Rx tablet blood sugar diagnostic (Blood #100 ea 10/25/21 12/21/21 Rx Glucose Test) lancets #100 ea 10/25/21 12/21/21 Rx Exam Const General: cooperative, healthy appearing, comfortable, no acute distress and not ill appearing Nutritional Appearance: overweight Neck Neck: normal visual inspection, no lymphadenopathy and no JVD Resp Auscultation: clear to auscultation bilaterally, no rales and no wheezes Cardio Rate: regular rate Rhythm: regular rhythm Heart Sounds: S1 normal, S2 normal, no gallops and no murmurs GI Palpation: soft, no hepatosplenomegaly, not firm and nontender Neuro General: patient alert, patient awake and patient oriented x3 Extrem General: normal to inspection, no cyanosis and no edema Results Labs Result diagrams: 12/21/21 14:45 12/21/21 14:45 Labs: Laboratory Results - last 24 hr 12/21/21 12/21/21 12/21/21 14:45 14:45 15:05 WBC 9.65 RBC 4.63 Hgb 15.6 Hct 44.0 MCV 95.0 MCH 33.7 H MCHC 35.5 RDW 12.4 Plt Count 176 MPV 9.4 Immature Gran % 0.3 Neutrophils % 73.3 Lymphocytes % 17.8 Monocytes % 7.9 Eosinophils % 0.4 Basophils % 0.3 Nucleated RBC % 0 Absolute Neutrophils 7.07 H Absolute Lymphocytes 1.72 Absolute Monocytes 0.76 Absolute Eosinophils 0.04 Absolute Basophils 0.03 PT 10.4 INR 1.0 APTT 21.0 D-Dimer 763 H Sodium 142 Potassium 3.6 Chloride 106 Carbon Dioxide 21.8 Anion Gap 14.2 H BUN 28 H Creatinine 1.0 Estimated GFR/1.73 m2 >= 60.00 Glucose 131 H Calcium 9.4 Magnesium 2.1 Total Bilirubin 1.1 H AST 20 ALT 46 Alkaline Phosphatase 96 Troponin I 189 H* Total Protein 7.1 Albumin 4.6 Urine Color Urine Clarity Urine pH Ur Specific [place] Urine Protein Urine Ketones Urine Blood Urine Nitrite Urine Bilirubin Urine Urobilinogen Ur Leukocyte Esterase Urine RBC Urine WBC Ur Epithelial Cells Urine Crystals Urine Bacteria Urine Casts Urine Mucus Urine Other Ur Culture Indicated? Urine Glucose COVID-19 Source 0312/21/21 12/21/21 16:45 18:10 19:34 WBC RBC Hgb Hct MCV MCH MCHC RDW Plt Count MPV Immature Gran % Neutrophils % Lymphocytes % Monocytes % Eosinophils % Basophils % Nucleated RBC % Absolute Neutrophils Absolute Lymphocytes Absolute Monocytes Absolute Eosinophils Absolute Basophils PT INR APTT D-Dimer Sodium Potassium Chloride Carbon Dioxide Anion Gap BUN Creatinine Estimated GFR/1.73 m2 Glucose Calcium Magnesium Total Bilirubin AST ALT Alkaline Phosphatase Troponin I 246 H* Total Protein Albumin Urine Color Yellow Urine Clarity Clear Urine pH 5.5 Ur Specific [place] 1.010 Urine Protein 30 H Urine Ketones 40 H Urine Blood Negative Urine Nitrite Negative Urine Bilirubin Negative Urine Urobilinogen 1.0 H Ur Leukocyte Esterase Negative Urine RBC Negative Urine WBC Negative Ur Epithelial Cells Negative Urine Crystals Negative Urine Bacteria Negative Urine Casts Negative Urine Mucus Negative Urine Other Negative Ur Culture Indicated? No Urine Glucose Negative COVID-19 Source Nasal/Nares 12/21/21 20:17 WBC RBC Hgb Hct MCV MCH MCHC RDW Plt Count MPV Immature Gran % Neutrophils % Lymphocytes % Monocytes % Eosinophils % Basophils % Nucleated RBC % Absolute Neutrophils Absolute Lymphocytes Absolute Monocytes Absolute Eosinophils Absolute Basophils PT INR APTT 77.0 H D D-Dimer Sodium Potassium Chloride Carbon Dioxide Anion Gap BUN Creatinine Estimated GFR/1.73 m2 Glucose Calcium Magnesium Total Bilirubin AST ALT Alkaline Phosphatase Troponin I Total Protein Albumin Urine Color Urine Clarity Urine pH Ur Specific [place] Urine Protein Urine Ketones Urine Blood Urine Nitrite Urine Bilirubin Urine Urobilinogen Ur Leukocyte Esterase Urine RBC Urine WBC Ur Epithelial Cells Urine Crystals Urine Bacteria Urine Casts Urine Mucus Urine Other Ur Culture Indicated? Urine Glucose COVID-19 Source Last Vital Signs Temp 36.4 C L 12/21/21 14:00 Pulse 91 H 12/21/21 21:05 Resp 11 L 12/21/21 21:10 BP 96/71 L 12/21/21 21:05 Pulse Ox 97 12/21/21 21:10
[2021-12-21 22:42] LABS: Troponin I 232 ng/L (<or=60)
[2021-12-22 00:46] LABS: PTT Activated 44.8 sec (21.0-27.5)
[2021-12-22 01:23] LABS: COVID-19 PCR Negative (Negative)
[2021-12-22 03:06] VITALS: BP 127/75; PULSE 69; RESP 18; TEMP 36.8; O2SAT 97
[2021-12-22 06:23] VITALS: BP 148/80; PULSE 68; RESP 18; TEMP 36.8; O2SAT 98
[2021-12-22 06:24] LABS: INR 1.1 (0.9-1.1); Prothrombin Time 10.6 sec (9.3-11.0)
[2021-12-22 06:43] LABS: ALT 37 U/L (16-63); AST 20 U/L (15-37); Albumin 3.9 g/dL (3.4-5.0); Alkaline Phosphatase 84 U/L (46-116); Anion Gap 5.3 mmol/L (3-11); BUN 20 mg/dL (7-18); Bilirubin, Total 1.1 mg/dL (0.2-1.0); CO2 22.7 mmol/L (21.0-32.0); CREATININE 0.8 mg/dL (0.70-1.30); Calcium 8.6 mg/dL (8.5-10.1); Chloride 104 mmol/L (98-107); Glucose 121 mg/dL (74-106); Potassium 3.3 mmol/L (3.5-5.1); Sodium 132 mmol/L (136-145); Total Protein 6.3 g/dL (6.4-8.2)
[2021-12-22 06:50] LABS: Troponin I 208 ng/L (<or=60)
[2021-12-22 07:00] VITALS: PULSE 75
--- NOTE | 2021-12-22 08:18 | W.PM.DS.N ---
DS: Diagnosis Discharge Diagnosis (1) Non-ST elevation [place] (NSTEMI): Status: Acute Asessment and Plan: patient preseted to ED from urgent care center w/ atypical angina equivalent of 10 days of exertional interscapular back pains w/out dyspnea. He was found to have NSTEMI by subtle ST depression on his EKG and elevated troponon I levels (see summary below and admission H&P). At the time of arrival to the ED he was pain free. He underwent CTA chest which did not show any aneurysm or PE and no acute CHF or pneumonia. He was put on heparin drip and given Plavix (patient had already been on ASA). He was kept on his home meds of Toprol XL, lisinopril, atorvastatin. His spironolactone was held. Patient was accepted for transfer to [facility] [place] to cardiology service of Dr. Merritt. (2) Elevated troponin: (3) Back pain: Discharge Plan Disposition Patient Disposition: [facility] Condition: Stable Discharge Details Reason For Visit: NSTEMI Admit Date/Time: 12/21/21 20:02 Admit Provider: Samuel Smith Attending Provider: Samuel Smith Primary Care Provider: Nnamdi Montilla Layton Hospital Course Hospital Course: 76-year-old male non-smoker with previous myocardial infarction 3 years ago with subsequent coronary stents nonischemic cardiomyopathy, prediabetes now presents from urgent care to the emergency department with 10-day history of interscapular back pain worsened with exertion and improved with rest presents with NSTEMI with an elevated troponin I level of 189 ng/L and EKG that demonstrated some subtle ST depression in the high lateral leads of 1 and aVL as well as the precordial leads V3 through V6. The time he presented to the emergency department his back pain had resolved and therefore nitroglycerin was not used. When he was found to have elevated troponin levels [facility] was consulted and the patient was accepted for transfer to the service of Dr. Heredia once a bed became available. Treatment emergency department included dual antiplatelet therapy with aspirin and Plavix and the patient was started on heparin drip. Patient has remained pain-free since admission and serial troponin levels were monitored and peaked at 246 ng/L and now down to 208 this morning. Initial CMP on admission was unremarkable except for mildly elevated BUN of 28 and an anion gap of 14.2 but since that time repeat labs this morning shows anion gap is resolved out of 5.3 however his serum potassium is low at 3.3. Patient is being repleted with oral potassium 40 meq. A bed has become available at [facility] [place] and patient is being transferred in stable condition and pain free and free of any dyspnea. Imaging last night included CXR that was normal and CTA of chest that demonstrated clear lungs and no P.E. On the morning of his transfer he received of his usual CV meds including his Toprol, lisinopril, ASA, plavix but his spironolactone was held. Home Meds and New Rx's Prescriptions: No Action (DME) blood-glucose meter Misc See Rx Instructions .ROUTE .MEDSUPPLY Qty: 1 0RF Rx Instructions: As directed to check blood glucose. No insulin. Dispense covered brand. (DME) lancets Misc See Rx Instructions .ROUTE .MEDSUPPLY Qty: 100 3RF Rx Instructions: As directed to check blood glucose daily. No insulin. Dispense covered brand. (DME) Blood Glucose Test Strip See Rx Instructions .ROUTE .MEDSUPPLY Qty: 100 3RF Rx Instructions: As directed to check blood glucose daily. No insulin. Dispense covered brand. aspirin 81 mg tablet,delayed release (DR/EC) 81 mg PO DAILY 0RF lisinopril 5 mg tablet 5 mg PO DAILY Qty: 90 3RF spironolactone 25 mg tablet 12.5 mg PO DAILY Qty: 45 3RF metoprolol succinate 50 mg tablet extended release 24 hr 50 mg PO DAILY Qty: 90 3RF metoprolol succinate 25 mg tablet extended release 24 hr 25 mg PO DAILY Qty: 90 3RF atorvastatin 80 mg tablet 80 mg PO DAILY Qty: 90 3RF nitroglycerin 0.4 mg tablet, sublingual 0.4 mg SL Q5-15M PRN (Reason: chest pain) Qty: 20 12RF Discharge Instructions Stand Alone Forms: Nursing Discharge Form Activity:: bedrest Diet:: Carb Counting Discharge Orders Discharge Orders: Discharge Order (Routine); Ordered 12/22/21 Ordered By: Ye Monsivais DS: Summary Time Spent with Patient providing and/or coordinating discharge services: Less than 30 minutes Specific discharge activities: interview/exam of patient, educating patient on what to anticipate w/ his transfer; documenting dc summary Status at Discharge Functional status at discharge: independent ambulation Overall status at discharge: patient is not back to baseline Mental Status: mental status grossly normal Speech and Movement: speech and movement normal Mood: congruent mood Affect: normal affect Exam Narrative Exam Narrative: white male sitting up in bed in no acute distress denies any dyspnea or chest or back discomfort presently. Neck supple no JVD Lungs are clear anteriorly posteriorly some fine rales at the bases no rhonchi or wheezing Heart is regular rate and rhythm no appreciable murmur rub or gallop Abdomen soft nondistended nontender Extremities without peripheral cyanosis or edema Psych Mental Status: mental status grossly normal Speech and Movement: speech and movement normal Mood: congruent mood Affect: normal affect DS: Data Vitals/I&O Vitals and I&O: Vital Signs Temperature 36.8 C 12/22/21 06:23 Temperature Source Tympanic 12/22/21 06:23 Pulse 75 12/22/21 07:00 Pulse Rhythm Regular 12/22/21 03:24 Pulse 85 12/21/21 21:10 Respiratory Rate 18 12/22/21 06:23 Respiratory Effort Non-Labored 12/22/21 03:24 Respiratory Depth Normal 12/22/21 03:24 Respiratory Pattern Normal 12/22/21 03:24 Blood Pressure 148/80 H 12/22/21 06:23 Blood Pressure Mean 77 12/21/21 21:05 Blood Pressure Position Sitting 12/21/21 14:00 Pulse Oximetry 98 12/22/21 06:23 Oxygen Delivery Method Room Air 12/22/21 06:23 Oxygen Flow Rate 0 12/22/21 06:23 Pain Level 0 12/21/21 15:57 Intake & Output 12/21/21 12/21/21 12/22/21 11:59 23:59 11:59 Intake Total 136.167 / 136.167 Output Total 350 / 350 Balance -213.833 / -213.833 Weight 97.9 kg 97.7 kg Intake: IV 136.167 / 136.167 Output: Urine 350 / 350 Other: Urine Color Yellow Urine Appearance Clear Cloudy Urine Odor Normal Voiding Methods Urinal Data Completed and Pending Labs on day of discharge: Labs from last 24 hours 12/22/21 12/22/21 12/22/21 05:49 05:49 00:23 WBC RBC Hgb Hct MCV MCH MCHC RDW Plt Count MPV Immature Gran % Neutrophils % Lymphocytes % Monocytes % Eosinophils % Basophils % Nucleated RBC % Absolute Neutrophils Absolute Lymphocytes Absolute Monocytes Absolute Eosinophils Absolute Basophils PT 10.6 INR 1.1 APTT 67.0 H D 44.8 H D D-Dimer Sodium 132 L Potassium 3.3 L Chloride 104 Carbon Dioxide 22.7 Anion Gap 5.3 BUN 20 H D Creatinine 0.8 Estimated GFR/1.73 m2 >= 60.00 Glucose 121 H Calcium 8.6 Magnesium Total Bilirubin 1.1 H AST 20 ALT 37 Alkaline Phosphatase 84 Troponin I 208 H* Total Protein 6.3 L Albumin 3.9 Urine Color Urine Clarity Urine pH Ur Specific [place] Urine Protein Urine Ketones Urine Blood Urine Nitrite Urine Bilirubin Urine Urobilinogen Ur Leukocyte Esterase Urine RBC Urine WBC Ur Epithelial Cells Urine Crystals Urine Bacteria Urine Casts Urine Mucus Urine Other Ur Culture Indicated? Urine Glucose COVID-19 Source SARS-CoV-2 (PCR) 12/21/21 12/21/21 12/21/21 22:05 20:17 19:34 WBC RBC Hgb Hct MCV MCH MCHC RDW Plt Count MPV Immature Gran % Neutrophils % Lymphocytes % Monocytes % Eosinophils % Basophils % Nucleated RBC % Absolute Neutrophils Absolute Lymphocytes Absolute Monocytes Absolute Eosinophils Absolute Basophils PT INR APTT 77.0 H D D-Dimer Sodium Potassium Chloride Carbon Dioxide Anion Gap BUN Creatinine Estimated GFR/1.73 m2 Glucose Calcium Magnesium Total Bilirubin AST ALT Alkaline Phosphatase Troponin I 232 H* Total Protein Albumin Urine Color Yellow Urine Clarity Clear Urine pH 5.5 Ur Specific [place] 1.010 Urine Protein 30 H Urine Ketones 40 H Urine Blood Negative Urine Nitrite Negative Urine Bilirubin Negative Urine Urobilinogen 1.0 H Ur Leukocyte Esterase Negative Urine RBC Negative Urine WBC Negative Ur Epithelial Cells Negative Urine Crystals Negative Urine Bacteria Negative Urine Casts Negative Urine Mucus Negative Urine Other Negative Ur Culture Indicated? No Urine Glucose Negative COVID-19 Source SARS-CoV-2 (PCR) 12/21/21 12/21/21 12/21/21 18:10 16:45 15:05 WBC RBC Hgb Hct MCV MCH MCHC RDW Plt Count MPV Immature Gran % Neutrophils % Lymphocytes % Monocytes % Eosinophils % Basophils % Nucleated RBC % Absolute Neutrophils Absolute Lymphocytes Absolute Monocytes Absolute Eosinophils Absolute Basophils PT 10.4 INR 1.0 APTT 21.0 D-Dimer 763 H Sodium Potassium Chloride Carbon Dioxide Anion Gap BUN Creatinine Estimated GFR/1.73 m2 Glucose Calcium Magnesium Total Bilirubin AST ALT Alkaline Phosphatase Troponin I 246 H* Total Protein Albumin Urine Color Urine Clarity Urine pH Ur Specific [place] Urine Protein Urine Ketones Urine Blood Urine Nitrite Urine Bilirubin Urine Urobilinogen Ur Leukocyte Esterase Urine RBC Urine WBC Ur Epithelial Cells Urine Crystals Urine Bacteria Urine Casts Urine Mucus Urine Other Ur Culture Indicated? Urine Glucose COVID-19 Source Nasal/Nares SARS-CoV-2 (PCR) Negative 12/21/21 12/21/21 14:45 14:45 WBC 9.65 RBC 4.63 Hgb 15.6 Hct 44.0 MCV 95.0 MCH 33.7 H MCHC 35.5 RDW 12.4 Plt Count 176 MPV 9.4 Immature Gran % 0.3 Neutrophils % 73.3 Lymphocytes % 17.8 Monocytes % 7.9 Eosinophils % 0.4 Basophils % 0.3 Nucleated RBC % 0 Absolute Neutrophils 7.07 H Absolute Lymphocytes 1.72 Absolute Monocytes 0.76 Absolute Eosinophils 0.04 Absolute Basophils 0.03 PT INR APTT D-Dimer Sodium 142 Potassium 3.6 Chloride 106 Carbon Dioxide 21.8 Anion Gap 14.2 H BUN 28 H Creatinine 1.0 Estimated GFR/1.73 m2 >= 60.00 Glucose 131 H Calcium 9.4 Magnesium 2.1 Total Bilirubin 1.1 H AST 20 ALT 46 Alkaline Phosphatase 96 Troponin I 189 H* Total Protein 7.1 Albumin 4.6 Urine Color Urine Clarity Urine pH Ur Specific [place] Urine Protein Urine Ketones Urine Blood Urine Nitrite Urine Bilirubin Urine Urobilinogen Ur Leukocyte Esterase Urine RBC Urine WBC Ur Epithelial Cells Urine Crystals Urine Bacteria Urine Casts Urine Mucus Urine Other Ur Culture Indicated? 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 Done 11/15/18 and 11/17/18 @ [facility] [place] NSTEMI (non-ST elevated myocardial infarction) (Acute) Medical History Diabetes mellitus Family History Mother Diabetes Social History Smoking/Tobacco Use Status: Never Smoking risk assessment performed?: Yes Alcohol Intake: former Drug use: Never Substance use type: does not use Household members: significant other Number of Children: 0 current occupation: retired, sales, band, antiques What is your relationship status?: living with partner Panel score (0-1 are the most socially isolated patients): 1 What type of physical activity do you participate in: regular exercise Seatbelt use: always Drive intox or ride w/intox local owner operator truck driver: No Working smoke detector in home: Yes Carbon monox detector in home: Yes Do you feel safe at home: Yes Do you feel safe in your relationship?: Yes
[2021-12-22] MEDS: Metoprolol CR 50 MG TABCR PO (08:33)
[2021-12-22] MEDS: Potassium Chloride 20 MEQ TABCR 40 MEQ PO (08:33)
[2021-12-22] MEDS: Aspirin E.C. 81 MG TABEC PO (08:33)
[2021-12-22] MEDS: Lisinopril 5 MG TAB PO (08:33)
[2021-12-22] MEDS: Clopidogrel 75 MG TAB PO (08:33)
[2021-12-22] MEDS: Metoprolol CR 25 MG TABCR PO (08:33)
== END 2021-12-22 08:51 | disposition short-term general hospital (02) | DRG 281 ==
LOC: ER 20:16 → MS 21:43
PROVIDERS: Physician Assistant; Admitting Provider Family Medicine; Emergency Provider Registered Nurse Emergency; PCP Family Medicine; Visit Provider Family Medicine
DX: I21.4 Non-ST elevation (NSTEMI) myocardial infarction (principal); D59.10 Autoimmune hemolytic anemia, unspecified; M54.9 Dorsalgia, unspecified; Z95.5 Presence of coronary angioplasty implant and graft; E11.9 Type 2 diabetes mellitus without complications; I25.5 Ischemic cardiomyopathy; I25.2 Old myocardial infarction; E78.5 Hyperlipidemia, unspecified; I25.10 Atherosclerotic heart disease of native coronary artery without angina pectoris
CPT/HCPCS: 36415; 71275; 80053; 87635; 93005; 96365; 96366; 96376; 99291; U0005; 71046; 81003; 81015; 83735; 84484; 85025; 85379; 85610; 85730; 93010; 99222; 99238; J3490

== ENCOUNTER 2022-01-25 09:14 | Outpatient (CLI) | payer MEDICARE, MEDICAID, SELFPAY ==
--- NOTE | 2022-01-25 09:30 | RT.EKG_ITS ---
APPROVED REPORT Exam: Resting ECG Reason for Exam: MT Patient Location: O HR:84 bpm ECG Measurements Heart Rate 84 AXIS WI 196 P 20 QRSd 95 QRS -21 QT 371 T 24 QTc 439 Conclusion Sinus rhythm...normal P axis, V-rate 50- 99 Borderline left axis deviation...QRS axis (-15,-29) Abnormal R-wave progression, early transition...QRS area>0 in V2
== END 2022-01-25 09:15 | disposition home or self-care (01) ==
LOC: DI.CARD 09:30
PROVIDERS: PCP Family Medicine; Referring Provider Family Medicine; Visit Provider Internal Medicine Cardiovascular Disease
DX: I21.4 Non-ST elevation (NSTEMI) myocardial infarction (principal)
CPT/HCPCS: 93010

== ENCOUNTER → 2022-01-25 09:14 | Outpatient (BNVA) | payer MEDICARE, MEDICAID, SELFPAY | PROVIDERS: PCP Family Medicine; Referring Provider Family Medicine; Visit Provider Internal Medicine Cardiovascular Disease | DX: I25.10 Atherosclerotic heart disease of native coronary artery without angina pectoris (principal); R03.0 Elevated blood-pressure reading, without diagnosis of hypertension; E78.2 Mixed hyperlipidemia; I25.2 Old myocardial infarction | CPT/HCPCS: 93005; 99214; 99213 ==

== ENCOUNTER 2022-02-14 02:17 | Outpatient (CLI) | payer MEDICARE, MEDICAID, SELFPAY ==
[2022-02-14 08:30] LABS: Abs Immature Grans 0.01 10^3/uL (0.0-0.06); Absolute Basophil Count 0.02 10^3/uL (0.0-0.2); Absolute Eosinophil Count 0.05 10^3/uL (0.0-0.7); Absolute Lymphocyte Count 1.21 10^3/uL (1.2-3.4); Absolute Neutrophil Count 3.34 10^3/uL (1.2-6.7); Basophils % 0.4; HCT 45.5 % (40.0-50.0); HGB 15.5 g/dL (13.5-17.5); Immature Grans % 0.2; Lymphocytes % 24.1; MCH 33.5 pg (27.0-33.0); MCHC 34.1 % (32.0-36.0); MCV 98 fL (80-95); MPV 8.7 fL (8.0-11.0); Neutrophils % 66.3; Platelet Count 145 10^3/uL (130-400); RBC 4.63 10^6/uL (4.36-5.78); RDW 12.4 % (11.8-14.1); RDW-SD 44.6 fL; WBC 5.03 10^3/uL (4.4-10.8)
[2022-02-14 08:48] LABS: Reticulocyte 1.2 % (0.5-2.4)
[2022-02-14 08:52] LABS: ALT 37 U/L (16-63); AST 20 U/L (15-37); Albumin 4.2 g/dL (3.4-5.0); Alkaline Phosphatase 92 U/L (46-116); Anion Gap 8.3 mmol/L (3-11); BUN 22 mg/dL (7-18); Bilirubin, Total 1.2 mg/dL (0.2-1.0); CO2 27.7 mmol/L (21.0-32.0); Calcium 8.8 mg/dL (8.5-10.1); Chloride 104 mmol/L (98-107); Glucose 120 mg/dL (74-106); LDH 132 U/L (85-227); Potassium 4.2 mmol/L (3.5-5.1); Sodium 140 mmol/L (136-145); Total Protein 6.8 g/dL (6.4-8.2)
[2022-02-15 10:18] LABS: Haptoglobin 96 mg/dL (32-197)
== END 2022-02-14 02:18 | disposition home or self-care (01) ==
LOC: LBO 02:17
PROVIDERS: PCP Family Medicine; Visit Provider Internal Medicine Hematology & Oncology
DX: C91.10 Chronic lymphocytic leukemia of B-cell type not having achieved remission (principal); D59.10 Autoimmune hemolytic anemia, unspecified
CPT/HCPCS: 36415; 80053; 85045; 83010; 83615; 85025; 86880

== ENCOUNTER → 2022-05-28 08:42 | Outpatient (BNVA) | payer MEDICARE, MEDICAID, SELFPAY | PROVIDERS: PCP Family Medicine; Referring Provider Family Medicine; Visit Provider Internal Medicine Cardiovascular Disease | DX: I25.2 Old myocardial infarction (principal); Z95.5 Presence of coronary angioplasty implant and graft; I25.10 Atherosclerotic heart disease of native coronary artery without angina pectoris; R03.0 Elevated blood-pressure reading, without diagnosis of hypertension; E11.9 Type 2 diabetes mellitus without complications | CPT/HCPCS: 99214 ==

== ENCOUNTER 2022-07-23 03:35 | Outpatient (CLI) | payer MEDICARE, MEDICAID, SELFPAY ==
[2022-07-23 08:21] LABS: Abs Immature Grans 0.03 10^3/uL (0.0-0.06); Absolute Basophil Count 0.03 10^3/uL (0.0-0.2); Absolute Eosinophil Count 0.08 10^3/uL (0.0-0.7); Absolute Lymphocyte Count 1.62 10^3/uL (1.2-3.4); Absolute Monocyte Count 0.62 10^3/uL (0.1-0.8); Absolute Neutrophil Count 5.08 10^3/uL (1.2-6.7); Basophils % 0.4; Eosinophils % 1.1; HCT 43.1 % (40.0-50.0); HGB 15.4 g/dL (13.5-17.5); Immature Grans % 0.4; Lymphocytes % 21.7; MCH 34.1 pg (27.0-33.0); MCHC 35.7 % (32.0-36.0); MCV 95 fL (80-95); MPV 8.7 fL (8.0-11.0); Monocytes % 8.3; Neutrophils % 68.1; Platelet Count 199 10^3/uL (130-400); RBC 4.52 10^6/uL (4.36-5.78); RDW 12.5 % (11.8-14.1); RDW-SD 43.8 fL; WBC 7.46 10^3/uL (4.4-10.8)
[2022-07-23 09:28] LABS: ALT 33 U/L (16-63); AST 17 U/L (15-37); Alkaline Phosphatase 96 U/L (46-116); Anion Gap 6.8 mmol/L (3-11); BUN 25 mg/dL (7-18); CO2 27.2 mmol/L (21.0-32.0); CREATININE 0.9 mg/dL (0.70-1.30); Calcium 9.4 mg/dL (8.5-10.1); Chloride 105 mmol/L (98-107); Estimated GFR 87.96 (mL/min/1.73m2); Glucose 105 mg/dL (74-106); Potassium 4.2 mmol/L (3.5-5.1); Sodium 139 mmol/L (136-145); Total Protein 6.9 g/dL (6.4-8.2)
[2022-07-23 09:50] LABS: LDH 163 U/L (85-227)
[2022-07-23 16:12] LABS: Reticulocyte 1.8 % (0.5-2.4)
[2022-07-24 10:17] LABS: Haptoglobin 127 mg/dL (32-197)
== END 2022-07-23 03:36 | disposition home or self-care (01) ==
LOC: LBO 03:35
PROVIDERS: PCP Family Medicine; Visit Provider Internal Medicine Hematology & Oncology
DX: C91.10 Chronic lymphocytic leukemia of B-cell type not having achieved remission (principal); D59.10 Autoimmune hemolytic anemia, unspecified
CPT/HCPCS: 36415; 80053; 83010; 83615; 85025; 85045; 86880

== ENCOUNTER → 2023-02-10 09:43 | Outpatient (BNVA) | payer MEDICARE, MEDICAID, SELFPAY | PROVIDERS: PCP Family Medicine; Visit Provider Internal Medicine Cardiovascular Disease | DX: I25.10 Atherosclerotic heart disease of native coronary artery without angina pectoris (principal); E11.9 Type 2 diabetes mellitus without complications | CPT/HCPCS: 99213 ==

== ENCOUNTER 2023-03-06 04:39 | Outpatient (CLI) | payer MEDICARE, MEDICAID, SELFPAY ==
[2023-03-06 07:39] LABS: Abs Immature Grans 0.02 10^3/uL (0.0-0.06); Absolute Basophil Count 0.03 10^3/uL (0.0-0.2); Absolute Eosinophil Count 0.07 10^3/uL (0.0-0.7); Absolute Lymphocyte Count 1.66 10^3/uL (1.2-3.4); Absolute Monocyte Count 0.56 10^3/uL (0.1-0.8); Absolute Neutrophil Count 3.62 10^3/uL (1.2-6.7); Basophils % 0.5; Eosinophils % 1.2; HGB 15.4 g/dL (13.5-17.5); Immature Grans % 0.3; Lymphocytes % 27.9; MCH 34.7 pg (27.0-33.0); MCHC 35.8 % (32.0-36.0); MCV 97 fL (80-95); MPV 8.8 fL (8.0-11.0); Monocytes % 9.4; Neutrophils % 60.7; Platelet Count 150 10^3/uL (130-400); RBC 4.44 10^6/uL (4.36-5.78); RDW 12.2 % (11.8-14.1); RDW-SD 43.3 fL; Reticulocyte 1.6 % (0.5-2.4); WBC 5.96 10^3/uL (4.4-10.8)
[2023-03-06 07:53] LABS: ALT 42 U/L (16-63); AST 22 U/L (15-37); Alkaline Phosphatase 89 U/L (46-116); Anion Gap 7.7 mmol/L (3-11); BUN 23 mg/dL (7-18); Bilirubin, Total 0.9 mg/dL (0.2-1.0); CO2 27.3 mmol/L (21.0-32.0); Calcium 9.1 mg/dL (8.5-10.1); Chloride 104 mmol/L (98-107); Estimated GFR 77.52 (mL/min/1.73m2); Glucose 134 mg/dL (74-106); LDH 155 U/L (85-227); Potassium 3.8 mmol/L (3.5-5.1); Sodium 139 mmol/L (136-145); Total Protein 6.7 g/dL (6.4-8.2)
== END 2023-03-06 04:40 | disposition home or self-care (01) ==
LOC: LBO 04:39
PROVIDERS: PCP Family Medicine; Visit Provider Internal Medicine Hematology & Oncology
DX: C91.10 Chronic lymphocytic leukemia of B-cell type not having achieved remission (principal); D59.10 Autoimmune hemolytic anemia, unspecified
CPT/HCPCS: 36415; 80053; 83615; 85025; 85045

== ENCOUNTER 2023-08-21 04:39 | Outpatient (CLI) | payer MEDICARE, MEDICAID, SELFPAY ==
[2023-08-21 08:12] LABS: Abs Immature Grans 0.02 10^3/uL (0.0-0.06); Absolute Basophil Count 0.05 10^3/uL (0.0-0.2); Absolute Monocyte Count 0.68 10^3/uL (0.1-0.8); Absolute Neutrophil Count 3.77 10^3/uL (1.2-6.7); Basophils % 0.8; Eosinophils % 1.5; Immature Grans % 0.3; Lymphocytes % 30.2; MCH 34.3 pg (27.0-33.0); MCHC 35.6 % (32.0-36.0); MCV 97 fL (80-95); MPV 8.6 fL (8.0-11.0); Monocytes % 10.3; Neutrophils % 56.9; Platelet Count 159 10^3/uL (130-400); RBC 4.66 10^6/uL (4.36-5.78); RDW 12.6 % (11.8-14.1); RDW-SD 43.8 fL; Reticulocyte 1.7 % (0.5-2.4); WBC 6.62 10^3/uL (4.4-10.8)
[2023-08-21 08:59] LABS: ALT 44 U/L (16-63); AST 23 U/L (15-37); Albumin 4.3 g/dL (3.4-5.0); Alkaline Phosphatase 91 U/L (46-116); Anion Gap 6.7 mmol/L (3-11); BUN 17 mg/dL (7-18); Bilirubin, Total 1.2 mg/dL (0.2-1.0); CO2 29.3 mmol/L (21.0-32.0); CREATININE 0.9 mg/dL (0.70-1.30); Calcium 9.5 mg/dL (8.5-10.1); Chloride 102 mmol/L (98-107); Estimated GFR 87.42 (mL/min/1.73m2); Glucose 104 mg/dL (74-106); LDH 150 U/L (85-227); Potassium 4.1 mmol/L (3.5-5.1); Sodium 138 mmol/L (136-145); Total Protein 7.2 g/dL (6.4-8.2)
== END 2023-08-21 04:40 | disposition home or self-care (01) ==
LOC: LBO 04:39
PROVIDERS: PCP Family Medicine; Visit Provider Internal Medicine Hematology & Oncology
DX: C91.10 Chronic lymphocytic leukemia of B-cell type not having achieved remission (principal); D59.10 Autoimmune hemolytic anemia, unspecified
CPT/HCPCS: 36415; 80053; 83615; 85025; 85045

== ENCOUNTER 2023-11-25 08:29 | Outpatient (CLI) | payer MEDICARE, MEDICAID, SELFPAY ==
--- NOTE | 2023-11-25 08:15 | RT.EKG_ITS ---
APPROVED REPORT Exam: Resting ECG Reason for Exam: CAD Patient Location: O HR:97 bpm ECG Measurements Heart Rate 97 AXIS ME 145 P 5 QRSd 96 QRS -24 QT 347 T 52 QTc 441 Conclusion Sinus rhythm...normal P axis, V-rate 50- 99 Borderline left axis deviation...QRS axis (-15,-29) Otherwise normal ECG
== END 2023-11-25 08:30 | disposition home or self-care (01) ==
LOC: DI.CARD 08:30
PROVIDERS: PCP Family Medicine; Visit Provider Internal Medicine Cardiovascular Disease
DX: I21.4 Non-ST elevation (NSTEMI) myocardial infarction (principal)
CPT/HCPCS: 93010

== ENCOUNTER → 2023-11-25 08:59 | Outpatient (BNVA) | payer MEDICARE, MEDICAID, SELFPAY | PROVIDERS: PCP Family Medicine; Visit Provider Internal Medicine Cardiovascular Disease | DX: I25.10 Atherosclerotic heart disease of native coronary artery without angina pectoris (principal) | CPT/HCPCS: 93005; 99213 ==

== ENCOUNTER 2024-01-30 01:08 | Outpatient (CLI) | payer MEDICARE, MEDICAID, SELFPAY ==
[2024-01-30 08:42] LABS: Abs Immature Grans 0.01 10^3/uL (0.0-0.06); Absolute Basophil Count 0.04 10^3/uL (0.0-0.2); Absolute Eosinophil Count 0.09 10^3/uL (0.0-0.7); Absolute Lymphocyte Count 1.66 10^3/uL (1.2-3.4); Absolute Monocyte Count 0.54 10^3/uL (0.1-0.8); Absolute Neutrophil Count 3.54 10^3/uL (1.2-6.7); Basophils % 0.7; Eosinophils % 1.5; HGB 15.9 g/dL (13.5-17.5); Immature Grans % 0.2; Lymphocytes % 28.2; MCH 34.9 pg (27.0-33.0); MCHC 35.3 % (32.0-36.0); MCV 99 fL (80-95); MPV 9.3 fL (8.0-11.0); Monocytes % 9.2; Neutrophils % 60.2; Platelet Count 163 10^3/uL (130-400); RBC 4.56 10^6/uL (4.36-5.78); RDW 12.3 % (11.8-14.1); RDW-SD 44.3 fL; Reticulocyte 1.6 % (0.5-2.4); WBC 5.88 10^3/uL (4.4-10.8)
[2024-01-30 09:10] LABS: ALT 42 U/L (16-63); AST 20 U/L (15-37); Albumin 4.1 g/dL (3.4-5.0); Alkaline Phosphatase 92 U/L (46-116); Anion Gap 7.6 mmol/L (3-11); BUN 25 mg/dL (7-18); Bilirubin, Total 1.2 mg/dL (0.2-1.0); CO2 29.4 mmol/L (21.0-32.0); Calcium 9.2 mg/dL (8.5-10.1); Chloride 105 mmol/L (98-107); Estimated GFR 77.04 (mL/min/1.73m2); Glucose 139 mg/dL (74-106); LDH 148 U/L (85-227); Potassium 4.4 mmol/L (3.5-5.1); Sodium 142 mmol/L (136-145); Total Protein 6.8 g/dL (6.4-8.2)
== END 2024-01-30 01:09 | disposition home or self-care (01) ==
LOC: LBO 01:09
PROVIDERS: PCP Family Medicine; Visit Provider Internal Medicine Hematology & Oncology
DX: D59.10 Autoimmune hemolytic anemia, unspecified (principal); C91.10 Chronic lymphocytic leukemia of B-cell type not having achieved remission
CPT/HCPCS: 36415; 80053; 83615; 85025; 85045

== ENCOUNTER 2024-06-24 03:08 | Outpatient (CLI) | payer MEDICARE, MEDICAID, SELFPAY ==
[2024-06-24 08:24] LABS: Abs Immature Grans 0.02 10^3/uL (0.0-0.06); Absolute Basophil Count 0.02 10^3/uL (0.0-0.2); Absolute Eosinophil Count 0.08 10^3/uL (0.0-0.7); Absolute Monocyte Count 0.51 10^3/uL (0.1-0.8); Absolute Neutrophil Count 3.65 10^3/uL (1.2-6.7); Basophils % 0.3 %; Eosinophils % 1.4 %; HCT 42.2 % (40.0-50.0); HGB 14.9 g/dL (13.5-17.5); Immature Grans % 0.3 %; Lymphocytes % 27.2 %; MCH 34.8 pg (27.0-33.0); MCHC 35.3 % (32.0-36.0); MCV 99 fL (80-95); Monocytes % 8.7 %; Neutrophils % 62.1 %; Platelet Count 150 10^3/uL (130-400); RBC 4.28 10^6/uL (4.36-5.78); RDW 12.7 % (11.8-14.1); RDW-SD 45.4 fL; Reticulocyte 1.6 % (0.5-2.4); WBC 5.88 10^3/uL (4.4-10.8)
[2024-06-24 08:38] LABS: ALT 38 U/L (16-63); AST 21 U/L (15-37); Albumin 3.8 g/dL (3.4-5.0); Alkaline Phosphatase 89 U/L (46-116); Anion Gap 8.5 mmol/L (3-11); BUN 20 mg/dL (7-18); Bilirubin, Total 1.07 mg/dL (0.2-1.0); CO2 27.5 mmol/L (21.0-32.0); Calcium 9.2 mg/dL (8.5-10.1); Chloride 104 mmol/L (98-107); Estimated GFR 77.04 (mL/min/1.73m2); Glucose 149 mg/dL (74-106); LDH 138 U/L (85-227); Potassium 4.1 mmol/L (3.5-5.1); Sodium 140 mmol/L (136-145); Total Protein 6.4 g/dL (6.4-8.2)
== END 2024-06-24 03:09 | disposition home or self-care (01) ==
LOC: LBO 03:08
PROVIDERS: PCP Family Medicine; Visit Provider Internal Medicine Hematology & Oncology
DX: C91.10 Chronic lymphocytic leukemia of B-cell type not having achieved remission (principal)
CPT/HCPCS: 36415; 80053; 83615; 85025; 85045

== ENCOUNTER → 2025-01-21 09:23 | Outpatient (BNVA) | payer MEDICARE, MEDICAID, SELFPAY | PROVIDERS: PCP Family Medicine; Visit Provider Internal Medicine Cardiovascular Disease | DX: I25.10 Atherosclerotic heart disease of native coronary artery without angina pectoris (principal); I25.5 Ischemic cardiomyopathy; E11.9 Type 2 diabetes mellitus without complications | CPT/HCPCS: 99213 ==

== ENCOUNTER 2025-01-27 02:13 | Outpatient (CLI) | payer MEDICARE, MEDICAID, SELFPAY ==
[2025-01-27 08:06] LABS: Abs Immature Grans 0.01 10^3/uL (0.0-0.06); Absolute Basophil Count 0.03 10^3/uL (0.0-0.2); Absolute Eosinophil Count 0.07 10^3/uL (0.0-0.7); Absolute Lymphocyte Count 1.66 10^3/uL (1.2-3.4); Absolute Neutrophil Count 3.09 10^3/uL (1.2-6.7); Basophils % 0.6 %; Eosinophils % 1.3 %; HCT 42.5 % (40.0-50.0); Immature Grans % 0.2 %; MCH 34.6 pg (27.0-33.0); MCHC 35.3 % (32.0-36.0); MCV 98 fL (80-95); MPV 8.8 fL (8.0-11.0); Monocytes % 9.3 %; Neutrophils % 57.6 %; Platelet Count 144 10^3/uL (130-400); RBC 4.33 10^6/uL (4.36-5.78); RDW 12.7 % (11.8-14.1); RDW-SD 45.6 fL; WBC 5.36 10^3/uL (4.4-10.8)
[2025-01-27 08:27] LABS: ALT 36 U/L (16-63); AST 21 U/L (15-37); Albumin 3.8 g/dL (3.4-5.0); Alkaline Phosphatase 79 U/L (46-116); Anion Gap 7.4 mmol/L (3-11); BUN 24 mg/dL (7-18); Bilirubin, Total 1.1 mg/dL (0.2-1.0); CO2 28.6 mmol/L (21.0-32.0); CREATININE 0.9 mg/dL (0.70-1.30); Calcium 9.4 mg/dL (8.5-10.1); Chloride 105 mmol/L (98-107); Estimated GFR 86.88 (mL/min/1.73m2); Glucose 148 mg/dL (74-106); LDH 151 U/L (85-227); Potassium 4.3 mmol/L (3.5-5.1); Sodium 141 mmol/L (136-145); Total Protein 6.4 g/dL (6.4-8.2)
[2025-01-28 09:13] LABS: IgA 93 mg/dL (85-499); IgG 391 mg/dL (610-1616); IgM 20 mg/dL (35-242)
== END 2025-01-27 02:14 | disposition home or self-care (01) ==
LOC: LBO 02:13
PROVIDERS: PCP Family Medicine; Visit Provider Internal Medicine Hematology & Oncology
DX: C91.10 Chronic lymphocytic leukemia of B-cell type not having achieved remission (principal); D59.10 Autoimmune hemolytic anemia, unspecified
CPT/HCPCS: 36415; 80053; 82784; 83615; 85025

== ENCOUNTER 2025-06-03 17:02 | Emergency (ER) | payer MEDICARE, MEDICAID, SELFPAY ==
[2025-06-03] VITALS (13 sets, daily range): BP systolic 141–147; BP diastolic 62–75; PULSE 67–73; RESP 13–22; TEMP 36.3; O2SAT 95–98
--- NOTE | 2025-06-03 17:00 | RT.EKG_ITS ---
APPROVED REPORT Exam: Resting ECG Reason for Exam: Palpitations Patient Location: E HR:78 bpm ECG Measurements Heart Rate 78 AXIS NC 211 P 47 QRSd 95 QRS -15 QT 381 T 38 QTc 438 Conclusion Sinus rhythm...normal P axis, V-rate 60- 99 Paired ventricular premature complexes...sequence of 2 V complexes Other than PVCs/Paired PVCs there is no significant change in EKG compared to 11/25/2023. Specifically no acute ST changes.
--- NOTE | 2025-06-03 17:11 | W.ED.GENAD ---
Discharge Plan Disposition Patient Disposition: Home Condition: Good Discharge Details Clinical Impression: PVCs (premature ventricular contractions) Primary Care Provider: Nnamdi Montilla ED Provider: Jeffrey Vergara Home Meds and New Rx's Prescriptions: Continued (DME) blood-glucose meter Misc See Rx Instructions .ROUTE .MEDSUPPLY Qty: 1 0RF Rx Instructions: As directed to check blood glucose. No insulin. Dispense covered brand. nitroglycerin 0.4 mg tablet, sublingual 0.4 mg SL Q5-15M PRN (Reason: chest pain) Qty: 20 12RF (DME) Blood Glucose Test Strip See Rx Instructions .ROUTE .MEDSUPPLY Qty: 100 3RF Rx Instructions: As directed to check blood glucose daily. No insulin. Dispense covered brand. (DME) lancets Misc See Rx Instructions .ROUTE .MEDSUPPLY Qty: 100 3RF Rx Instructions: As directed to check blood glucose daily. No insulin. Dispense covered brand. aspirin 81 mg tablet,delayed release (DR/EC) 81 mg PO DAILY Qty: 90 3RF atorvastatin 80 mg tablet 80 mg PO DAILY Qty: 90 3RF clopidogrel 75 mg tablet 75 mg PO DAILY Qty: 90 3RF lisinopril 5 mg tablet 5 mg PO DAILY Qty: 90 3RF metoprolol succinate 50 mg tablet extended release 24 hr 50 mg PO DAILY Qty: 90 3RF Discharge Instructions Instructions: Ventricular premature beats Additional Instructions: You were seen with concerns for potential cardiac problem. Your EKG does show premature ventricular contractions but is otherwise completely unchanged from previous. Your laboratory studies are all reassuring. You may follow-up with primary care next week if continued symptoms. You should return to the ED if you develop any type of chest pain or pressure, shortness of breath, neurologic change, syncope, other concerns. Referrals: Nnamdi Montilla DO [Primary Care Provider, Medicine] HPI General Mode of arrival: ambulatory. Date/Time Provider Initiated Documentation: 06/03/25 17:10. Limitations to Documentation: no limitations. Information obtained by: patient and RN notes reviewed. HPI Narrative: Patient presents to ED complaint of tickle in his chest and some constipation since having RSV shot last . He does not necessarily feel that the typical is related to palpitations. He denies having any type of chest pain or pressure, shortness of breath, fever, cough, URI symptoms. He denies any abdominal pain or vomiting. He is able to eat and drink normally. In fact, he has been working and has had no real change in his function despite symptoms. However this tickle has prompted him to present to ED given his previous heart history/stents. Related Data Home Medications ?Medication ?Instructions ?Recorded ?Confirmed blood-glucose meter #1 ea 07/26/21 06/03/25 blood sugar diagnostic (Blood #100 ea 12/25/21 06/03/25 Glucose Test strips) lancets #100 ea 12/25/21 06/03/25 aspirin 81 mg tablet,delayed 81 mg PO DAILY #90 tabs 12/05/22 06/03/25 release atorvastatin 80 mg tablet 80 mg PO DAILY #90 tabs 10/07/24 06/03/25 clopidogrel 75 mg tablet 75 mg PO DAILY #90 tabs 10/07/24 06/03/25 lisinopril 5 mg tablet 5 mg PO DAILY #90 tabs 10/07/24 06/03/25 metoprolol succinate 50 mg 50 mg PO DAILY #90 tabs 10/07/24 06/03/25 tablet,extended release 24 hr nitroglycerin 0.4 mg sublingual 0.4 mg sublingual Q5-15M PRN chest 02/04/25 06/03/25 tablet pain #20 tabs Previous Rx's ?Medication ?Instructions ?Recorded blood-glucose meter #1 ea 07/26/21 blood sugar diagnostic (Blood #100 ea 12/25/21 Glucose Test strips) lancets #100 ea 12/25/21 aspirin 81 mg tablet,delayed 81 mg PO DAILY #90 tabs 12/05/22 release atorvastatin 80 mg tablet 80 mg PO DAILY #90 tabs 10/07/24 clopidogrel 75 mg tablet 75 mg PO DAILY #90 tabs 10/07/24 lisinopril 5 mg tablet 5 mg PO DAILY #90 tabs 10/07/24 metoprolol succinate 50 mg 50 mg PO DAILY #90 tabs 10/07/24 tablet,extended release 24 hr nitroglycerin 0.4 mg sublingual 0.4 mg sublingual Q5-15M PRN chest 02/04/25 tablet pain #20 tabs Allergies Allergy/AdvReac Type Severity Reaction Status Date / Time red blood cells Allergy Severe clinically Uncoded 06/03/25 17:07 significant vang agglutinin(see comment) General Stated Complaint: Palpitatns SUSU: 3 Exam Narrative Exam Narrative: Const: WDWN elderly male in NAD. VS per triage. HEENT: NC/AT. Normal facial exam. Neck: Supple. Trachea midline. Lungs: Normal respiratory effort. Lungs are clear. Cor: RRR without murmur. Good radial pulses. GI: Soft/ND/NT. Neuro: A+O x 3. Normal speech, mentation, gait. Cranial nerves II - XII grossly intact. No gross motor or sensory deficit. Ext: No C/C/E. Course Vital Signs Vital signs: Vital Signs Temperature 97.4 F L 06/03/25 17:03 Pulse 71 06/03/25 17:03 Respiratory Rate 14 06/03/25 17:03 Blood Pressure 147/74 H 06/03/25 17:03 Pulse Oximetry 98 06/03/25 17:03 Temperature 97.4 F L 06/03/25 17:03 Temperature Source Oral 06/03/25 17:03 Pulse 71 06/03/25 17:03 Respiratory Rate 14 06/03/25 17:03 Blood Pressure 147/74 H 06/03/25 17:03 Blood Pressure Position Sitting 06/03/25 17:03 Pulse Oximetry 98 06/03/25 17:03 Oxygen Delivery Method Room Air 06/03/25 17:03 Oxygen Flow Rate 0 06/03/25 17:03 Pain Level 0 06/03/25 17:03 Medical Decision Making Patient presenting to ED with tickle in his chest. Does not really describe palpitations or skipped heartbeat but also is not describing any type of chest pain or pressure, shortness of breath, fever or cough. He just became concerned as this feeling has been persistent and he has had previous cardiac stents and MIs. He thinks it may be related to the RSV shot from last . He otherwise feels completely well and has been working. Has some constipation but is not taking anything for this. His EKG is sinus rhythm with PVCs but no acute ST changes and otherwise unchanged from previous. Suspect the tickle he is describing is likely related to the PVCs. Will maintain him on the monitor while here. Will check chemistries, CBC, TSH and a single troponin. Labs are unremarkable. Hemoglobin, chemistries, troponin are all normal. TSH is normal. Patient reassured and will be discharged home to follow-up with primary care as needed. Return precautions provided. Lab Data Lab results reviewed: Yes I reviewed the patient's lab results. 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) Bunion (Acute) Non-ST elevation UT (NSTEMI) (Chronic ~12/2021) Dual antiplatelet therapy for 1 year, started 12/25, Stent placed LCX artery; Recommended to stay on plavix Diabetes mellitus type II, controlled (Acute) Hyperglycemia (Acute) Blood pressure elevated without history of HTN (Acute) Ischemic cardiomyopathy (Chronic) Hyperlipidemia, mixed (Chronic) Status post non-ST elevation myocardial infarction (NSTEMI) (Chronic) History of coronary artery stent placement (Chronic) CAD (coronary artery disease) (Chronic) 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 Done 11/15/18 and 11/17/18 @ [facility] NSTEMI (non-ST elevated myocardial infarction) (Acute) Medical History Diabetes mellitus Family History Mother Diabetes Social History Smoking/Tobacco Use Status: Never Smoking risk assessment performed?: Yes Alcohol Intake: former Drug use: Never Substance use type: does not use Household members: significant other Number of Children: 0 current occupation: retired, sales, band, antiques What is your relationship status?: living with partner Panel score (0-1 are the most socially isolated patients): 1 What type of physical activity do you participate in: regular exercise Seatbelt use: always Drive intox or ride w/intox mule driver: No Working smoke detector in home: Yes Carbon monox detector in home: Yes Do you feel safe at home: Yes Do you feel safe in your relationship?: Yes
[2025-06-03 17:37] LABS: Abs Immature Grans 0.05 10^3/uL (0.0-0.06); HCT 43.0 % (40.0-50.0); HGB 15.2 g/dL (13.5-17.5); Immature Grans % 0.4 %; MCH 34.6 pg (27.0-33.0); MCHC 35.3 % (32.0-36.0); MCV 98 fL (80-95); MPV 9.1 fL (8.0-11.0); Platelet Count 172 10^3/uL (130-400); RBC 4.39 10^6/uL (4.36-5.78); RDW 12.7 % (11.8-14.1); RDW-SD 45.2 fL; WBC 11.98 10^3/uL (4.4-10.8)
[2025-06-03 17:58] LABS: Troponin I 8 ng/L (<or=76)
[2025-06-03 18:03] LABS: Anion Gap 9.3 mmol/L (3-11); BUN 23 mg/dL (7-18); CO2 27.7 mmol/L (21.0-32.0); Calcium 9.4 mg/dL (8.5-10.1); Chloride 104 mmol/L (98-107); Estimated GFR 76.56 (mL/min/1.73m2); Glucose 139 mg/dL (74-106); Magnesium 2.1 mg/dL (1.8-2.4); Potassium 3.9 mmol/L (3.5-5.1); Sodium 141 mmol/L (136-145); TSH (W/Ref FT4) 3.14 uIU/mL (0.36-3.74)
== END 2025-06-03 18:47 | disposition home or self-care (01) ==
PROVIDERS: Emergency Provider Emergency Medicine; PCP Family Medicine
DX: I49.3 Ventricular premature depolarization (principal)
CPT/HCPCS: 36415; 80048; 93005; 99284; 83735; 84443; 84484; 85025; 93010; 99283

== ENCOUNTER 2025-08-02 01:16 | Outpatient (CLI) | payer MEDICARE, MEDICAID, SELFPAY ==
[2025-08-02 08:00] LABS: Abs Immature Grans 0.02 10^3/uL (0.0-0.06); HCT 42.2 % (40.0-50.0); HGB 14.8 g/dL (13.5-17.5); Immature Grans % 0.3 %; MCH 34.7 pg (27.0-33.0); MCHC 35.1 % (32.0-36.0); MCV 99 fL (80-95); MPV 8.9 fL (8.0-11.0); Platelet Count 148 10^3/uL (130-400); RBC 4.26 10^6/uL (4.36-5.78); RDW 12.5 % (11.8-14.1); RDW-SD 44.9 fL; WBC 6.40 10^3/uL (4.4-10.8)
[2025-08-02 08:16] LABS: ALT 36 U/L (16-63); AST 22 U/L (15-37); Albumin 3.9 g/dL (3.4-5.0); Alkaline Phosphatase 85 U/L (46-116); Anion Gap 7.0 mmol/L (3-11); BUN 23 mg/dL (7-18); Bilirubin, Total 1.1 mg/dL (0.2-1.0); CO2 29.0 mmol/L (21.0-32.0); Calcium 9.0 mg/dL (8.5-10.1); Chloride 104 mmol/L (98-107); Estimated GFR 86.34 (mL/min/1.73m2); Glucose 105 mg/dL (74-106); LDH 166 U/L (85-227); Potassium 4.2 mmol/L (3.5-5.1); Sodium 140 mmol/L (136-145); Total Protein 6.6 g/dL (6.4-8.2)
[2025-08-02 08:19] LABS: Hemoglobin A1C 5.8 % (<5.7)
== END 2025-08-02 01:17 | disposition home or self-care (01) ==
PROVIDERS: PCP Family Medicine; Visit Provider Nurse Practitioner Adult Health
DX: E11.9 Type 2 diabetes mellitus without complications (principal); D59.10 Autoimmune hemolytic anemia, unspecified; C91.10 Chronic lymphocytic leukemia of B-cell type not having achieved remission
CPT/HCPCS: 36415; 80053; 82784; 83036; 83615; 85025